=== PATIENT | female | born 1960 | race Caucasian/White ===

== ENCOUNTER 2023-01-06 10:47 | Outpatient (OUT) | payer OTHER, SELFPAY ==
--- NOTE | 2023-01-06 10:50 | MM_ITS ---
Patient Name: NIKOS GARCIA MR#: [id number] : 1960 Exam Date: 01/06/2023 Ordering Doctor: DR Edward Feldman . RADIOLOGY REPORT PROCEDURE: MM TOMOSYNTHESIS SCREENING BI COMPARISON: MG MAMM SCREEN 3D NICHOLAS CAD, 11/23/2021. MG MAMM SCREEN 3D NICHOLAS CAD, 10/20/2020. MG MAMM SCREEN NICHOLAS W CAD, 10/19/2019. MG MAMM NICHOLAS SCRN W CAD DIG, 02/03/2015. INDICATIONS: Screening Calculator Name NCI Breast Cancer Risk Assessment Tool 5 Year Breast Cancer Risk 1.40% Lifetime Breast Cancer Risk 5.80% Personal Breast Cancer No Personal Ovarian Cancer No Treatments None Family Cancers None LOCATION: The [facility] BREAST COMPOSITION: Heterogeneously dense,which may obscure small masses. FINDINGS: DIAGNOSTIC CATEGORY 0--INCOMPLETE: NEED ADDITIONAL IMAGING EVALUATION. RIGHT BREAST: No significant suspicious finding. Scattered benign-appearing lymph nodes are present. Scattered benign-appearing calcifications are present. No significant change has occurred. LEFT BREAST: 6 mm partially circumscribed mass within the posterior lower-inner quadrant just deep to the skin surface. Spot magnification views and ultrasound evaluation recommended. Stable, chronic benign-appearing calcifications. RECOMMENDATIONS: ADDITIONAL MAMMOGRAPHIC VIEWS REQUIRED: LEFT BREAST - LEFT CRANIOCAUDAL SPOT MAGNIFICATION VIEW - LEFT OBLIQUE SPOT MAGNIFICATION VIEW - ULTRASOUND: LEFT BREAST PLEASE NOTE: A NORMAL MAMMOGRAM DOES NOT EXCLUDE THE POSSIBILITY OF BREAST CANCER. A CLINICALLY SUSPICIOUS PALPABLE LUMP SHOULD BE BIOPSIED. Dictated by: Daryn Barahona M.D. on 01/07/2023 at 15:30 Approved by: Daryn Barahona M.D. on 01/07/2023 at 15:58
== END 2023-01-06 10:48 | disposition home or self-care (01) ==
LOC: MAMMO 10:47
PROVIDERS: PCP Family Medicine; Visit Provider Family Medicine
DX: Z12.31 Encounter for screening mammogram for malignant neoplasm of breast (principal); N63.24 Unspecified lump in the left breast, lower inner quadrant
CPT/HCPCS: 77063; 77067

== ENCOUNTER 2023-01-24 09:15 | Outpatient (OUT) | payer OTHER, SELFPAY ==
--- NOTE | 2023-01-24 09:19 | US_ITS ---
Patient Name: NIKOS GARCIA MR#: [id number] : 1960 Exam Date: 01/24/2023 Ordering Doctor: DR Edward Feldman . RADIOLOGY REPORT PROCEDURE: MM DIAGNOSTIC MAMMO UNILAT LT, 01/24/2023, 09:19 US BREAST LT LIMITED, 01/24/2023, 09:32 COMPARISON: MM TOMOSYNTHESIS SCREENING BI, 01/06/2023. MG MAMM SCREEN 3D NICHOLAS CAD, 11/23/2021. MG MAMM SCREEN 3D NICHOLAS CAD, 10/20/2020. MG MAMM SCREEN NICHOLAS W CAD, 10/19/2019. INDICATIONS: Abnormal Mammogram R92.8 Calculator Name NCI Breast Cancer Risk Assessment Tool 5 Year Breast Cancer Risk 1.40% Lifetime Breast Cancer Risk 5.80% Personal Breast Cancer No Personal Ovarian Cancer No Treatments None Family Cancers None LOCATION: [facility] BREAST COMPOSITION: Heterogeneously dense,which may obscure small masses. FINDINGS: DIAGNOSTIC CATEGORY 2--BENIGN FINDING: LEFT BREAST: Spot magnification views demonstrate persistence of a circumscribed mass within the posterior lower inner quadrant. Ultrasound evaluation demonstrates a 5 x 5 x 3 mm hypoechoic circumscribed mass with central fatty hilum at the 8 o'clock position 6.9 cm from the nipple; findings favor a benign lymph node. RECOMMENDATIONS: ROUTINE MAMMOGRAM AND CLINICAL EVALUATION IN 12 MONTHS. PLEASE NOTE: A NORMAL MAMMOGRAM DOES NOT EXCLUDE THE POSSIBILITY OF BREAST CANCER. A CLINICALLY SUSPICIOUS PALPABLE LUMP SHOULD BE BIOPSIED. Dictated by: Daryn Barahona M.D. on 01/24/2023 at 15:37 Approved by: Daryn Barahona M.D. on 01/24/2023 at 15:45
--- NOTE | 2023-01-24 09:40 | MM_ITS ---
Patient Name: NIKOS GARCIA MR#: [id number] : 1960 Exam Date: 01/24/2023 Ordering Doctor: DR Edward Feldman . RADIOLOGY REPORT PROCEDURE: MM DIAGNOSTIC MAMMO UNILAT LT, 01/24/2023, 09:19 US BREAST LT LIMITED, 01/24/2023, 09:32 COMPARISON: MM TOMOSYNTHESIS SCREENING BI, 01/06/2023. MG MAMM SCREEN 3D NICHOLAS CAD, 11/23/2021. MG MAMM SCREEN 3D NICHOLAS CAD, 10/20/2020. MG MAMM SCREEN NICHOLAS W CAD, 10/19/2019. INDICATIONS: Abnormal Mammogram R92.8 Calculator Name NCI Breast Cancer Risk Assessment Tool 5 Year Breast Cancer Risk 1.40% Lifetime Breast Cancer Risk 5.80% Personal Breast Cancer No Personal Ovarian Cancer No Treatments None Family Cancers None LOCATION: [facility] BREAST COMPOSITION: Heterogeneously dense,which may obscure small masses. FINDINGS: DIAGNOSTIC CATEGORY 2--BENIGN FINDING: LEFT BREAST: Spot magnification views demonstrate persistence of a circumscribed mass within the posterior lower inner quadrant. Ultrasound evaluation demonstrates a 5 x 5 x 3 mm hypoechoic circumscribed mass with central fatty hilum at the 8 o'clock position 6.9 cm from the nipple; findings favor a benign lymph node. RECOMMENDATIONS: ROUTINE MAMMOGRAM AND CLINICAL EVALUATION IN 12 MONTHS. PLEASE NOTE: A NORMAL MAMMOGRAM DOES NOT EXCLUDE THE POSSIBILITY OF BREAST CANCER. A CLINICALLY SUSPICIOUS PALPABLE LUMP SHOULD BE BIOPSIED. Dictated by: Daryn Barahona M.D. on 01/24/2023 at 15:37 Approved by: Daryn Barahona M.D. on 01/24/2023 at 15:45
== END 2023-01-24 09:16 | disposition home or self-care (01) ==
LOC: MAMMO 09:15
PROVIDERS: PCP Family Medicine; Visit Provider Family Medicine
DX: R92.8 Other abnormal and inconclusive findings on diagnostic imaging of breast (principal); N63.24 Unspecified lump in the left breast, lower inner quadrant
CPT/HCPCS: 76642; 77065

== ENCOUNTER 2024-01-09 07:31 | Outpatient (OUT) | payer MEDICARE, SELFPAY ==
--- OUTSIDE RECORDS SUMMARY | 2024-01-09 07:37 | XMS_ITS | CCD ---
Author Organization [facility] Inform ion [facility] Care Team Providers Care Seed Trucker Name Role Phone DR CHACE OLEARY Admitting Unavailable NADMILLIE, DR CHACE Alvarez Attending Unavailable NADERER, DR CHACE Alvarez Primary Care Unavailable LEONARD, DR ISIDRA Daly Consulting Unavailable NADERER, DR CHACE Alvarez Consulting Unavailable NADERER, DR CHACE Alvarez Admitting Unavailable NADERER, DR CHACE Alvarez Attending Unavailable ANIRUDH, DR CHACE Alvarez Primary Care Unavailable ANIRUDH, DR CHACE Alvarez Consulting Unavailable HOLDEN Perea Attending Provider Rashmi Perea Unavailable Rashmi Perea Admitting Unavailable Rashmi Perea Attending Unavailable NO FAMILY, PHYSICIAN Primary Care Unavailable Mily Martinez Unavailable ANG MICHAEL Attending Unavailable CHACE OLEARY Referring Unavailable CHACE OLEARY Primary Care Unavailable Allergies Allergy Classification Reported Allergen(s) Allergy Type Date of Onset Reaction(s) Facility (2 sources) Penicillins; Translations: [PENICILLINS] Drug allergy (disorder) 09-07-19 13 [facility] Repository (1 source) Sulfonamides (Antibiotic) Drug allergy (disorder) 09-07-19 13 [facility] (5 sources) Penicillin G Drug Allergy pt doens't remember [facility] Other (5 sources) Sulf-10 Drug allergy pt doesn't remember [facility] Other (1 source) Sulfonamides (Antibiotic); Translations: [SULFA (SULFONAMIDE ANTIBIOTICS)] Propensity to adverse reactions to drug (disorder) 07-10-19 17 [facility] Repository Medications Current Medications Medication Drug Class(es) Dates Sig (Normalized) Sig (Original) Allergy (5 sources) Allergy Active celecoxib 200 mg oral capsule (5 sources) Nonsteroidal Anti-inflammatory Drug take 1 capsule by mouth twice daily at mealtime CeleBREX 200 MG 1 capsule with food Orally twice a day Active CeleBREX Active cephalexin 500 mg oral capsule (1 source) Cephalosporin Antibacterial Start: 10-22-2022 take 1 capsule by mouth every eight hours Cephalexin 500 MG 1 capsule Orally tid for 10 day(s) Sep, Active doxycycline monohydrate 100 mg oral capsule (3 sources) Tetracycline-class Drug Start: 04-11-2022 take 1 capsule by mouth every twelve hours Doxycycline Monohydrate 100 MG 1 capsule Orally every 12 hrs for 7 days Mar, Active fluticasone propionate 0.05 mg/actuat metered dose nasal spray (1 source) Corticosteroid Start: 10-22-2022 take 2 spray(s) nasal route once daily Fluticasone Propionate 50 MCG/ACT 2 sprays Nasally Once a day for 14 day(s) Sep, Active Multivitamin preparation (5 sources) take 1 tablet by mouth once daily Multivitamin - 1 tablet Orally Once a day Active Multivitamin Act antelmo phenazopyridine hydrochloride 200 mg oral tablet (3 sources) Start: 04-11-2022 take 1 tablet by mouth every eight hours Pyridium 200 MG 1 tablet after meals Orally Three times a day for 2 day(s) Mar, Active predniSONE 20 mg oral tablet (1 source) Start: 10-22-2022 take 1 tablet by mouth every twelve hours predniSONE 20 MG 1 tablet Orally bid for 5 day(s) Sep, Active Completed/Discontinued Medications Medication Drug Class(es) Dates Sig (Normalized) Sig (Original) clarithromycin 500 mg oral tablet (3 sources) Macrolide Antimicrobial Start: 3 take 1 tablet by mouth every twelve hours Clarithromycin 500 MG 1 tablet Orally every 12 hrs for 7 days Feb, Not-Taking dextromethorphan hydrobromide 1.5 mg/ml / pyrilamine maleate 1.5 mg/ml oral solution (3 sources) Uncompetitive N-hyknkl-K-asparta te Receptor Antagonist, Sigma-1 Agonist Start: 3 [place] DM 7.5-7.5 MG/5ML 10 ml Orally every 6-8 hours as needed for 8 days Feb, Not-Taking hydrocortisone 10 mg/ml / neomycin 3.5 mg/ml / polymyxin b [id number] unt/ml otic suspension (2 sources) Aminoglycoside Antibacterial, Polymyxin-class Antibacterial, Corticosteroid Start: 3 Srtmouec-Iynuzxzvs-LI [id number] 3 drops right ear Three times a day for 7 days June, Not-Taking methylPREDNISolone 4 mg oral tablet (8 sources) Corticosteroid Start: 3 methylPREDNISolone 4 MG as directed Orally Once a day for 6 days Feb, Not-Taking Start: 08-10-2013 Depo-Medrol 80 mg Jul, 80 mg Problems Problem Classification Problem Date Documented Da te Episodic/Chronic Administrative/social admission (1 source) Other specified counseling; Translations: [Other specified counseling] Onset: 03-11-2023 Episodic Cancer of other female genital organs (1 source) Carcinoma in situ of vulva; Translations: [Carcinoma in situ of vulva] Onset: 07-09-2016 Chronic Chronic obstructive pulmonary disease and bronchiectasis (1 source) Bronchitis, not specified as acute or chronic Episodic Genitourinary symptoms and ill-defined conditions (2 sources) Dysuria; Translations: [Dysuria] Onset: 04-11-2022 Episodic Other ear and sense organ disorders (1 source) Impacted cerumen, bilateral Episodic Other ear and sense organ disorders (1 source) Unspecified acute noninfective otitis externa, left ear Episodic Other screening for suspected conditions (not mental disorders or infectious disease) (5 sources) Encounter for screening mammogram for malignant neoplasm of breast; Translations: [ENC SCR MAMMO MALIG NEOPLASM BREAST] Onset: 11-23-2021 Episodic Other upper respiratory infections (2 sources) Acute pharyngitis, unspecified; Translations: [Acute sinusitis, unspecified] Episodic Pneumonia (except that caused by tuberculosis or sexually transmitted disease) (1 source) Pneumonia, unspecified organism Episodic Urinary tract infections (1 source) Acute cystitis with hematuria Episodic Results Test Name Value Interpretation Reference Range Facility Urinalysis - AUTOMATEDon Appearance (U) clear [facility] Other Bilirubin Ql (U) Negative [employer] Other Color (U) yellow [facility] Other Glucose Ql (U) Negative [facility] Other Hemoglobin Ql (U) small [employer] Other Ketones Ql (U) Negative [facility] Other Leukocyte esterase Test strip Ql (U) trace [facility] Other Nitrite Ql (U) Negative [facility] Other pH (U) 7.5 [pH] [facility] Other Protein Ql (U) Negative [facility] Other Specific gravity (U) [Rel density] 1.025 [facility] Other Urinalysis Gross Exam abnormal [facility] Other Urobilinogen (U) [Mass/Vol] 0.2 mg/dL [facility] Other Urinalysis - DIPSTICKon 03-27 Appearance (U) [facility] Other Bilirubin Ql (U) [employer] Other Color (U) [facility] Other Glucose Ql (U) [facility] Other Ketones Ql (U) [employer] Other Protein Ql (U) [employer] Other Specific gravity (U) [Rel density] [facility] Other Urinalysis - DIPSTICK [facility] Other Urine Cultureon 04-11-2022 Bacteria identified Cx Nom (U) Reason for Exam Dysuria Urine No Growth 2 Days PERFORMED BY: [address] [id number] [place] [id number] PATHOLOGIST TRUCK UNLOADER YARY SOLER M.D. Normal [facility] Comment on above: Performed By: #### C UU #### [facility] [address] [id number] [facility] Bacteria identified Cx Nom (U) [employer] [facility] Scan•Jour Other Quick Strepon 03-24-2022 S. pyogenes Org specific cx Ql (Throat) Negative [employer] [facility] Scan•Jour Other Quick Strep [employer] [facility] Scan•Jour Other CBC AUTO DIFFon 12-12-2021 BASO # 0.1 103/ul Normal 0.0-0.1 [facility] Comment on above: Performed By: #### C BC #### [facility] [address] [place] [address] Dr. Oliva Sullivan Basophils/100 WBC (Bld) 1.0 % Normal 0.2-2.0 [facility] Comment on above: Performed By: #### C BC #### [facility] [address] [place] [address] Dr. Oliva Sullivan EO # 0.1 103/ul Normal 0.0-0.7 [facility] Comment on above: Performed By: #### C BC #### [facility] [address] [place] [address] Dr. Oliva Sullivan Eosinophils/100 WBC (Bld) 1.6 % Normal 0.9-7.0 [facility] Comment on above: Performed By: #### C BC #### [facility] [address] [address] [address] Oliva Sullivan Erythrocyte distribution width (RBC) [Ratio] 12.6 % Normal 11.0-15.0 [facility] Comment on above: Performed By: #### C BC #### [facility] [address] [address] [address] Oliva Sullivan Hematocrit (Bld) [Volume fraction] 44.6 % Normal 36.0-48.0 [facility] Comment on above: Performed By: #### C BC #### [facility] [address] [place] [address] Dr. Oliva Sullivan Hemoglobin (Bld) [Mass/Vol] 14.6 g/dL Normal 12.0-16.0 [facility] Comment on above: Performed By: #### C BC #### [facility] [address] [place] [address] Dr. Oliva Sullivan IG # 0.01 10e3/ul Normal 0.00-0.03 [facility] Comment on above: Performed By: #### C BC #### [facility] [address] [place] [address] Dr. Oliva Sullivan IG % 0.2 % Normal 0.0-0.5 [facility] Comment on above: Performed By: #### C BC #### [facility] [address] [place] [address] Dr. Oliva Sullivan LYMPH # 2.3 103/ul Normal 1.2-3.8 [facility] Comment on above: Performed By: #### C BC #### [facility] [address] [place] [address] Dr. Oliva Sullivan Lymphocytes/100 WBC (Bld) 37.3 % Normal 20.5-60.0 [facility] Comment on above: Performed By: #### C BC #### [facility] [address] [place] [address] Dr. Oliva Sullivan MANUAL DIFF REQ NO Normal [facility] Comment on above: Performed By: #### C BC #### [facility] [address] [place] [address] Dr. Oliva Sullivan MCH (RBC) [Entitic mass] 31.5 pg Normal 26.7-34.0 [facility] Comment on above: Performed By: #### C BC #### [facility] [address] [place] [address] Dr. Oliva Sullivan MCHC (RBC) [Mass/Vol] 32.7 g/dL Normal 29.9-35.2 [facility] Comment on above: Performed By: #### C BC #### [facility] [address] [place] [address] Dr. Oliva Sullivan MCV (RBC) [Entitic vol] 96.1 fL Normal 81.0-99.0 [facility] Comment on above: Performed By: #### C BC #### [facility] [address] [place] [address] Dr. Oliva Sullivan MONO # 0.6 103/ul Normal 0.3-0.8 [facility] Comment on above: Performed By: #### C BC #### [facility] [address] [place] [address] Dr. Oliva Sullivan Monocytes/100 WBC (Bld) 9.7 % Normal 1.7-12.0 [facility] Comment on above: Performed By: #### C BC #### [facility] [address] [place] [address] Dr. Oliva Sullivan NEUT # 3.1 103/ul Normal 1.4-6.5 [facility] Comment on above: Performed By: #### C BC #### [facility] [address] [place] [address] Dr. Oliva Sullivan Neutrophils/100 WBC (Bld) 50.2 % Normal 43.0-75.0 [facility] Comment on above: Performed By: #### C BC #### [facility] [address] [place] [address] Dr. Oliva Sullivna Platelet mean volume (Bld) [Entitic vol] 10.1 fL Normal 9.5-13.5 [facility] Comment on above: Performed By: #### C BC #### [facility] [address] [place] [address] Dr. Oliva Sullivan PLT 328 103/ul Normal 150-450 [facility] Comment on above: Performed By: #### C BC #### [facility] [address] [place] [address] Dr. Oliva Sullivan RBC 4.64 106/ul Normal 4.20-5.40 [facility] Comment on above: Performed By: #### C BC #### [facility] [address] [place] [address] Dr. Oliva Sullivan WBC 6.2 103/ul Normal 4.0-11.0 [facility] Comment on above: Performed By: #### C BC #### [facility] [address] [address] [address] Oliva Sullivan GLYCOHEMOGLOBIN A1Con 2021 ADA RECOMMENDATION SEE BELOW Normal [facility] Comment on above: Result Comment: ADA RECOMMENDED LIMIT 4.0 - 6.0 ADA THERAPEUTIC TARGET < 7.0 ACTION SUGGESTED > 7.0 Performed By: #### A 1C #### [facility] [address] [address] [address] Oliva Sullivan Glucose [Mass/Vol] 120 mg/dL Normal [facility] Comment on above: Performed By: #### A 1C #### [facility] [address] [address] [address] Oliva Sullivan HbA1c (Bld) [Mass fraction] 5.8 % Normal 4.5-6.2 [facility] Comment on above: Performed By: #### A 1C #### [facility] [address] [address] [address] Oliva Sullivan LIPID PROFILEon 12-12-2021 CHOL-HDL RATIO NORM SEE BELOW Normal [facility] Comment on above: Result Comment: 3.3 - 4.4 LOW RISK 4.4 - 7.1 AVERAGE RISK 7.1 - 11.0 MODERATE RISK >11.0 HIGH RISK Performed By: #### T SH, LIPID, LIVER, BMP #### [facility] [address] [address] [address] Oliva Sullivan Cholesterol [Mass/Vol] 202 mg/dL Critically high <=200 [facility] Comment on above: Performed By: #### T SH, LIPID, LIVER, BMP #### [facility] [address] [address] [address] Oliva Sullivan Cholesterol in HDL [Mass/Vol] 57 mg/dL Normal 40-60 [facility] Comment on above: Performed By: #### T SH, LIPID, LIVER, BMP #### [facility] [address] [address] [address] Oliva Sullivan Cholesterol in LDL [Mass/Vol] 127.2 mg/dL Normal [facility] Comment on above: Performed By: #### T SH, LIPID, LIVER, BMP #### [facility] [address] [address] [address] Oliva Sullivan Cholesterol.total/Ch olesterol in HDL [Mass ratio] 3.5 {ratio} Normal [facility] Comment on above: Performed By: #### T SH, LIPID, LIVER, BMP #### [facility] [address] [address] [address] Oliva Sullivan HDL NORMAL > or = 60 mg/dl - LOW CARDIOVASCULAR RISK <40 mg/dl - HIGH CARDIOVASCULAR RISK Normal [facility] Comment on above: Performed By: #### T SH, LIPID, LIVER, BMP #### [facility] [address] [address] [address] Oliva Sullivan LDL CALC NORMAL SEE BELOW Normal [facility] Comment on above: Result Comment: <100 mg/dl OPTIMAL 100 - 129 mg/dl NEAR OR ABOVE OPTIMAL 130 - 159 mg/dl BORDERLINE HIGH 160 - 189 mg/dl HIGH >190 mg/dl VERY HIGH Performed By: #### T SH, LIPID, LIVER, BMP #### [facility] [address] [address] [address] Oliva Sullivan Triglyceride [Mass/Vol] 89 mg/dL Normal <=150 [facility] Comment on above: Performed By: #### T SH, LIPID, LIVER, BMP #### [facility] [address] [address] [address] Oliva Sullivan VLDL CALC 17.8 mg/dL Normal [facility] Comment on above: Performed By: #### T SH, LIPID, LIVER, BMP #### [facility] [address] [address] [address] Oliva Sullivan LIVER PROFILEon 12-12-2021 Albumin [Mass/Vol] 4.2 g/dL Normal 3.4-5.0 [facility] Comment on above: Performed By: #### T SH, LIPID, LIVER, BMP #### [facility] [address] [address] [address] Oliva Sullivan Albumin/Globulin [Mass ratio] 1.1 {ratio} Normal [facility] Comment on above: Performed By: #### T SH, LIPID, LIVER, BMP #### [facility] [address] [address] [address] Oliva Sullivan ALP [Catalytic activity/Vol] 97 U/L Normal 46-116 [facility] Comment on above: Performed By: #### T SH, LIPID, LIVER, BMP #### [facility] [address] [place] [address] Dr. Oliva Sullivan ALT [Catalytic activity/Vol] 42 U/L Normal 14-59 [facility] Comment on above: Performed By: #### T SH, LIPID, LIVER, BMP #### [facility] [address] [place] [address] Dr. Oliva Sullivan AST [Catalytic activity/Vol] 27 U/L Normal 15-37 [facility] Comment on above: Performed By: #### T SH, LIPID, LIVER, BMP #### [facility] [address] [place] [address] Dr. Oliva Sullivan BILI, CONJUGATED 0.1 mg/dL Normal 0.0-0.2 [facility] Comment on above: Performed By: #### T SH, LIPID, LIVER, BMP #### [facility] [address] [place] [address] Dr. Oliva Sullivan Bilirubin [Mass/Vol] 0.4 mg/dL Normal 0.2-1.0 [facility] Comment on above: Performed By: #### T SH, LIPID, LIVER, BMP #### [facility] [address] [place] [address] Dr. Oliva Sullivan Globulin (S) [Mass/Vol] 3.7 g/dL Normal [facility] Comment on above: Performed By: #### T SH, LIPID, LIVER, BMP #### [facility] [address] [place] [address] Dr. Oliva Sullivan Protein [Mass/Vol] 7.9 g/dL Normal 6.4-8.2 [facility] Comment on above: Performed By: #### T SH, LIPID, LIVER, BMP #### [facility] [address] [address] [address] Oliva Sullivan PROF CHEM 8 (BAS METB)on Anion gap [Moles/Vol] 11.5 mmol/L Normal [facility] Comment on above: Performed By: #### T SH, LIPID, LIVER, BMP #### [facility] [address] [place] [address] Dr. Oliva Sullivan Calcium [Mass/Vol] 9.4 mg/dL Normal 8.5-10.1 [facility] Comment on above: Performed By: #### T SH, LIPID, LIVER, BMP #### [facility] [address] [address] [address] Oliva Sullivan Chloride [Moles/Vol] 99 mmol/L Normal 98-107 [facility] Comment on above: Performed By: #### T SH, LIPID, LIVER, BMP #### [facility] [address] [place] [address] Dr. Oliva Sullivan CO2 [Moles/Vol] 28.3 mmol/L Normal 21.0-32.[address] [facility] Comment on above: Performed By: #### T SH, LIPID, LIVER, BMP #### [facility] [address] [address] [address] Oliva Sullivan Creatinine [Mass/Vol] 0.78 mg/dL Normal 0.55-1.02 [facility] Comment on above: Performed By: #### T SH, LIPID, LIVER, BMP #### [facility] [address] [place] [address] Dr. Oliva Sullivan EGFR-AF MONEGASQUE >60 Normal >=[address] [facility] Comment on above: Performed By: #### T SH, LIPID, LIVER, BMP #### [facility] [address] [address] [address] Oliva Sullivan EGFR-NON AF MONEGASQUE >60 Normal >=60 [facility] Comment on above: Performed By: #### T SH, LIPID, LIVER, BMP #### [facility] [address] [place] [address] Dr. Oliva Sullivan Glucose [Mass/Vol] 86 mg/dL Normal 74-106 [facility] Comment on above: Performed By: #### T SH, LIPID, LIVER, BMP #### [facility] [address] [address] [address] Oliva Sullivan Potassium [Moles/Vol] 4.8 mmol/L Normal 3.5-5.1 [facility] Comment on above: Performed By: #### T SH, LIPID, LIVER, BMP #### [facility] [address] [address] [address] Oliva Sullivan Sodium [Moles/Vol] 134 mmol/L Critically low 136-145 [facility] Comment on above: Performed By: #### T SH, LIPID, LIVER, BMP #### [facility] [address] [place] [address] Dr. Oliva Sullivan Urea nitrogen [Mass/Vol] 12.0 mg/dL Normal 7.0-18.0 [facility] Comment on above: Performed By: #### T SH, LIPID, LIVER, BMP #### [facility] [address] [place] [address] Dr. Oliva Sullivan Urea nitrogen/Creatinine [Mass ratio] 15.4 mg/mg Normal [facility] Comment on above: Performed By: #### T SH, LIPID, LIVER, BMP #### [facility] [address] [place] [address] Dr. Oliva Sullivan TSHon 12-12-2021 TSH 2.314 uIU/mL Normal 0.358-3.740 [facility] Comment on above: Performed By: #### T SH, LIPID, LIVER, BMP #### [facility] [address] [place] [address] Dr. Oliva Sullivan MG MAMM SCREEN 3D NICHOLAS CADon 11-23-2021 MG MAMM SCREEN 3D NICHOLAS CAD Patient: NIKOS GARCIA Exam Date: 11/23/2021 : 1960 Gender:F Ordering : DR CHACE OLEARY . Admission #: [id number] Family : ANG MICHAEL Order #: [id number] CLICK HERE TO VIEW EXAM RADIOLOGY REPORT PROCEDURE: MAMMOGRAM SCREENING 3D BILATERAL CAD COMPARISON: MG MAMM SCREEN NICHOLAS W CAD, 10/19/2019. MG MAMM SCREEN 3D NICHOLAS CAD, 10/20/2020. INDICATIONS: Screening mammography Calculator Name NCI Breast Cancer Risk Assessment Tool 5 Year Breast Cancer Risk 1.40% Lifetime Breast Cancer Risk 6.00% Personal Breast Cancer No Personal Ovarian Cancer No Treatments None Family Cancers None LOCATION: [facility] BREAST COMPOSITION: Heterogeneously dense,which may obscure small masses. FINDINGS: DIAGNOSTIC CATEGORY 1--NEGATIVE. NO CHANGE FROM COMPARISON ASSESSMENT. Scattered benign-appearing calcifications are present. RIGHT BREAST: No significant suspicious finding. LEFT BREAST: No significant suspicious finding. RECOMMENDATIONS: ROUTINE MAMMOGRAM AND CLINICAL EVALUATION IN 12 MONTHS. PLEASE NOTE: A NORMAL MAMMOGRAM DOES NOT EXCLUDE THE POSSIBILITY OF BREAST CANCER. A CLINICALLY SUSPICIOUS PALPABLE LUMP SHOULD BE BIOPSIED. Dictated by: Isidra Culp MD on 11/23/2021 at 12:52 Approved by: Isidra Culp MD on 11/23/2021 at 12:54 Normal [facility] Vital Signs Date Time Vital Sign Value Performing Clinician Facility 10-22-2022 09:20-0400 Body height 147.32 cm Mily Valenzuelamond Other [facility] Other 10-22-2022 09:20-0400 Body mass index (BMI) [Ratio] 22.69 kg/m2 Mily Michelle Other [facility] Other 10-22-2022 09:20-0400 Body temperature 97.4 [degF] Mily Michelle Other [facility] Other 10-22-2022 09:20-0400 Body weight 49.26 kg Mily Valenzuelamond Other [facility] Other 10-22-2022 09:20-0400 Diastolic blood pressure 85 mm[Hg] Mily Michelle Other [facility] Other 10-22-2022 09:20-0400 Respiratory rate 18 /min Mily Michelle Other [facility] Other 10-22-2022 09:20-0400 SaO2% (BldA) [Mass fraction] 99 % Mily Michelle Other [facility] Other 10-22-2022 09:20-0400 Systolic blood pressure 141 mm[Hg] Mily Michelle Other [facility] Other 07-07-2022 11:50-0400 Body height 147.32 cm Mily Michelle Other [facility] Other 07-07-2022 11:50-0400 Body mass index (BMI) [Ratio] 22.95 kg/m2 Mily Michelle Other [facility] Other 07-07-2022 11:50-0400 Body temperature 97.1 [degF] Mily Michelle Other [facility] Other 07-07-2022 11:50-0400 Body weight 49.81 kg Mily Michelle Other [facility] Other 07-07-2022 11:50-0400 Diastolic blood pressure 80 mm[Hg] Mily Michelle Other [facility] Other 07-07-2022 11:50-0400 Respiratory rate 18 /min Mily Michelle Other [facility] Other 07-07-2022 11:50-0400 SaO2% (BldA) [Mass fraction] 98 % Mily Michelle Other [facility] Other 07-07-2022 11:50-0400 Systolic blood pressure 135 mm[Hg] Mily Michelle Other [facility] Other 04-11-2022 13:00-0500 Body height 147.32 cm Rashmi Madrigalault Other [facility] Other 04-11-2022 13:00-0500 Body mass index (BMI) [Ratio] 22.53 kg/m2 Rashmi Brit Other [facility] Other 04-11-2022 13:00-0500 Body temperature 98 [degF] Rashmi Brit Other [facility] Other 04-11-2022 13:00-0500 Body weight 48.9 kg Rashmi Brit Other [facility] Other 04-11-2022 13:00-0500 Diastolic blood pressure 83 mm[Hg] Rashmi Madrigalault Other [facility] Other 04-11-2022 13:00-0500 SaO2% (BldA) [Mass fraction] 98 % Rashmi Madrigalault Other [facility] Other 04-11-2022 13:00-0500 Systolic blood pressure 128 mm[Hg] Rashmi Madrigalault Other [facility] Other 03-24-2022 11:30-0500 Body height 147.32 cm Rashmi Brit Other [facility] Other 03-24-2022 11:30-0500 Body mass index (BMI) [Ratio] 24.03 kg/m2 Rashmi Brit Other [facility] Other 03-24-2022 11:30-0500 Body temperature 97.9 [degF] Rashmi Perea Other [facility] Other 03-24-2022 11:30-0500 Body weight 52.16 kg Rashmi Perea Other [facility] Other 03-24-2022 11:30-0500 Diastolic blood pressure 83 mm[Hg] Rashmi Peera Other [facility] Other 03-24-2022 11:30-0500 Respiratory rate 18 /min Rashmi Perea Other [facility] Other 03-24-2022 11:30-0500 SaO2% (BldA) [Mass fraction] 92 % Rashmi Perea Other [facility] Other 03-24-2022 11:30-0500 Systolic blood pressure 130 mm[Hg] Rashmi Perea Other [facility] Other 03-05-2022 13:30-0500 Body height 147.32 cm Rashmi Perea Other [facility] Other 03-05-2022 13:30-0500 Body mass index (BMI) [Ratio] 24.03 kg/m2 Rashmi Perea Other [facility] Other 03-05-2022 13:30-0500 Body temperature 98.1 [degF] Rashmi Madrigalault Other [facility] Other 03-05-2022 13:30-0500 Body weight 52.16 kg Rashmi Madrigalault Other [facility] Other 03-05-2022 13:30-0500 Respiratory rate 18 /min Rashmi Madrigalault Other [facility] Other 03-05-2022 13:30-0500 SaO2% (BldA) [Mass fraction] 98 % Rashmi Madrigalault Other [facility] Other Encounters Encounter Date Encounter Type Care Provider Facility Start: 03-11-2023 End: 03-11-2023 ambulatory [facility] Start: 10-22-2022 End: 10-22-2022 ambulatory Mily Michelle Other [facility] Other Start: 10-22-2022 Office outpatient vi sit 15 minutes Mily Michelle [facility] Start: 07-07-2022 End: 07-07-2022 ambulatory Mily Michelle Other [facility] Other Start: 07-07-2022 Office outpatient vi sit 15 minutes Mily Michelle [facility] Start: 04-11-2022 Office outpatient vi sit 15 minutes Rashmi Brit [facility] Start: 04-11-2022 End: 04-11-2022 ambulatory Rashmi Perea [facility] Work Phone: Start: 04-11-2022 End: 04-11-2022 Departed Referred [facility] Rashmi Perea Work Phone: [facility] [place] Work Phone: Start: 03-24-2022 End: 03-24-2022 ambulatory Rashmi Perea Other [facility] Other Start: 03-24-2022 Office outpatient vi sit 15 minutes Rashmilloyd Perea [facility] Start: 03-05-2022 End: 03-05-2022 ambulatory Rashmi Perea Other [facility] Other Start: 03-05-2022 Office outpatient ne w 20 minutes Rashmi Madrigalault [facility] Start: 12-16-2021 Encounter for genera l adult medical examination without abnormal findings DR CHACE OLEARY [facility] Start: 12-12-2021 End: 12-13-[address] CHACE OLEARY Facility:[facility] Start: 12-12-2021 End: 12-13-2021 Encounter for general adult medical examination without abnormal findings DR CHACE OLEARY Facility:[facility] Start: 11-23-2021 End: 11-24-[address] CHACE OLEARY Facility:[facility] Procedures Date Procedure Procedure Detail Performing Clinician Start: 03-11-2023 Follow-up visit Follow-up CHANDRAKANT MICHAEL Plan of Treatment Date Care Activity Detail Author Start: 04-11-2022 Bacteria identified in Urine by Culture [facility] Payers Date Payer Category Payer Unknown [id number] 2022 Self-pay 2022 Unknown [id number] 2022 Unknown [id number] 1961 Unknown [id number] 1960 Unknown [id number] 1960 Unknown [id number] 1960 Unknown [id number] Medicaid [id number] Private Health Insurance [facility] [id number] Unknown [id number] Social History Date Type Detail Facility Tobacco smoking status NHIS Unknown if ever smoked [facility] Work Phone: Start: 1960 Sex Assigned At Female F [facility] Sex Assigned At Sex Assigned At Bir th [facility] Other Evaluation note 10-22-2022 Note Date & Type Note Facility 10-22-2022 Evaluation note Encounter Date Diagnosis Assessment Notes Sep, Acute sinusitis, recurrence not specified, unspecified location (ICD-10 - J01.90) Sinusitis home care material was printed Drink plenty fluids, get plenty of rest. Take the cephalexin and prednisone as prescribed until gone. Use the fluticasone nasal spray as prescribed and your symptoms improved. You may continue to take your daily antihistamine medication. Follow-up with your family physician if no improvement in 2 to 3 days [facility] Other Evaluation note 07-07-2022 Note Date & Type Note Facility 07-07-2022 Evaluation note Encounter Date Diagnosis Assessment Notes June, Bilateral impacted cerumen (ICD-10 - H61.23) Cerumen impaction home care material was printed Drink plenty fluids, get plenty of rest. Use eardrops as prescribed. Take Tylenol or Motrin as needed for aches pains or fevers. Follow-up with family physician if no improvement in 2 to 3 days June, Acute otitis externa of left ear, unspecified type (ICD-10 - H60.502) Otitis externa home care material was printed [facility] Other Evaluation note 04-11-2022 Note Date & Type Note Facility 04-11-2022 Evaluation note Encounter Date Diagnosis Assessment Notes Mar, Dysuria (ICD-10 - R30.0) Mar, Acute cystitis with hematuria (ICD-10 - N30.01) Take medication as directed. Urine analysis shows abnormalities today in office. Urine culture will be sent to lab. Will call with results if warranted. Increase fluid intake. Follow hygiene guidelines such as wiping front to back, avoid using perfumed lotions, bath beads, bubble bath. Recommend follow up with primary care provider after treatment completed to make sure infection has cleared. [facility] Other Evaluation note 03-24-2022 Note Date & Type Note Facility 03-24-2022 Evaluation note Encounter Date Diagnosis Assessment Notes Feb, Sore throat (ICD-10 - J02.9) Feb, Walking pneumonia (ICD-10 - J18.9) Take medications as directed. Rest and increase fluid intake. Take meds with food to prevent stomach upset. Use inhaler as needed for coughing spells and SOB. It is better to use inhaler a few times a day over the next 2-3 days. Follow up with primary care provider if symptoms do not improve with treatment plan, although it may take a few weeks for the cough to go away [facility] Other Evaluation note 03-05-2022 Note Date & Type Note Facility 03-05-2022 Evaluation note Encounter Date Diagnosis Assessment Notes Feb, Bronchitis (ICD-10 - J40) Take medications as directed. Rest and increase fluid intake. Take meds with food to prevent stomach upset. Use inhaler as needed for coughing spells and SOB. It is better to use inhaler a few times a day over the next 2-3 days. Follow up with primary care provider if symptoms do not improve with treatment plan, although it may take a few weeks for the cough to go away [facility] Other Evaluation note Note Date & Type Note Facility Evaluation note No assessment information availa [facility] Work Phone: History general Narrative - Reported Note Date & Type Note Facility History general Narrative - Reported Type Medical History Osteoarthritis Surgical History cholecystectomy Surgical History tonsillectomy Surgical History wisdom teeth Hospitalization History see above [facility] Scan•Jour Other Summary Purpose Family History No Family History Records FoundNo Family History Records FoundNo Family History Records Found Advance Directives No Advanced Directives Records FoundNo Advanced Directives Records FoundNo Advanced Directives Records Found Chief Complaint and Reason for Visit Chief Complaint Dysuria Additional Source Comments INFORMATION SOURCE (unrecogn ized section and content) DATE CREATED AUTHOR 01/23/2022 Bayron silver DATE CREATED AUTHOR AUTHOR'S MICHOACANO MEDINA 04/23/2022 [facility] DATE CREATED AUTHOR AUTHOR'S ORGANIZ ATION 03/12/2023 [facility] Care Teams (unrecognized sec tion and content) Team Status: Inactive Member Role Status Dates HOLDEN Gray Attending Provider Active Goals (unrecognized section and content) Goals may be documented in a n alternate sectionNo InformationNo InformationNo InformationNo InformationNo Information REASON FOR VISIT (unrecogniz ed section and content) COUGH, CONGESTIONSORE THROAT CONGESTION COUGHUTIRIGHT EARACHE, DECREASED HEARINGsinus infection FOR RECORDS PERTAINING TO PATIENTS WHO ARE OR HAVE BEEN ENROLLED IN A CHEMICAL DEPENDENCY/SUBSTANCEABUSE PROGRAM, SOME INFORMATION MAY BE OMITTED. This clinical summary was aggregated from multiple sources. Caution should be exercised in using it in the provision of clinical care. This summary normalizes information from multiple sources, and as a consequence, information in this document may materially change the coding, format and clinical context of patient data. In addition, data may be omitted in some cases. CLINICAL DECISIONS SHOULD BE BASED ON THE PRIMARY CLINICAL RECORDS. [employer] provides no warranty or guarantee of the accuracy or completeness of information in this document.
--- NOTE | 2024-01-09 07:42 | MM_ITS ---
Patient Name: NIKOS GARCIA MR#: [id number] : 1960 Exam Date: 01/09/2024 Ordering Doctor: Non-Staff Physician RADIOLOGY REPORT PROCEDURE: MM TOMOSYNTHESIS SCREENING BI COMPARISON: US BREAST LT LIMITED, 01/24/2023. MM DIAGNOSTIC MAMMO UNILAT LT, 01/24/2023. MM TOMOSYNTHESIS SCREENING BI, 01/06/2023. MG MAMM SCREEN 3D NICHOLAS CAD, 11/23/2021. MG MAMM SCREEN 3D NICHOLAS CAD, 10/20/2020. INDICATIONS: Screening Calculator Name NCI Breast Cancer Risk Assessment Tool 5 Year Breast Cancer Risk 1.50% Lifetime Breast Cancer Risk 5.60% Personal Breast Cancer No Personal Ovarian Cancer No Treatments None Family Cancers None LOCATION: [facility] BREAST COMPOSITION: The breasts are heterogeneously dense,which may obscure small masses. FINDINGS: DIAGNOSTIC CATEGORY 0--INCOMPLETE: NEED ADDITIONAL IMAGING EVALUATION. RIGHT BREAST: No significant suspicious finding. Scattered benign-appearing calcifications are present. No significant change has occurred. LEFT BREAST: Interval increase in size and density of a 7 mm partially circumscribed mass within the posterior lower inner quadrant, which on previous ultrasound evaluation with suggestive of a lymph node. Given the change in size and density additional ultrasound evaluation is recommended. Stable benign-appearing calcifications. RECOMMENDATIONS: ULTRASOUND: LEFT BREAST Active recommendations from prior exams: ROUTINE MAMMOGRAM AND CLINICAL EVALUATION IN [#MONTHS] MONTHS. Due on 01/25/2024. PLEASE NOTE: A NORMAL MAMMOGRAM DOES NOT EXCLUDE THE POSSIBILITY OF BREAST CANCER. A CLINICALLY SUSPICIOUS PALPABLE LUMP SHOULD BE BIOPSIED. Dictated by: Daryn Barahona M.D. on 01/09/2024 at 10:29 Approved by: Daryn Barahona M.D. on 01/09/2024 at 10:37
== END 2024-01-09 07:32 | disposition home or self-care (01) ==
LOC: MAMMO 07:35
PROVIDERS: PCP Family Medicine
DX: Z12.31 Encounter for screening mammogram for malignant neoplasm of breast (principal); N63.24 Unspecified lump in the left breast, lower inner quadrant
CPT/HCPCS: 77063; 77067

== ENCOUNTER 2024-01-27 08:50 | Outpatient (OUT) | payer MEDICARE, SELFPAY ==
--- NOTE | 2024-01-27 08:53 | US_ITS ---
Patient Name: NIKOS GARCIA MR#: [id number] : 1960 Exam Date: 01/27/2024 Ordering Doctor: Non-Staff Physician RADIOLOGY REPORT PROCEDURE: US BREAST LT COMPLETE COMPARISON: MM TOMOSYNTHESIS SCREENING BI, 01/09/2024. INDICATIONS: Abnormal mammogram on left, R92.8 TECHNIQUE: Breast ultrasound was performed, with evaluation focusing only on specific areas of concern. FINDINGS: DIAGNOSTIC CATEGORY 2--BENIGN FINDING: Identified in the hypodermis is a focal oval area hypoechogenicity, with mildly heterogeneous internal echotexture, this lesion extends nearly to the skin surface on image number 19. No internal vascularity. The lesion measures 6.4 x 5.4 x 6.4 mm, this lesion likely represents an epidermal inclusion cyst or sebaceous cyst. RECOMMENDATIONS: ROUTINE MAMMOGRAM AND CLINICAL EVALUATION IN 12 MONTHS. PLEASE NOTE: A NORMAL ULTRASOUND EXAMINATION DOES NOT EXCLUDE THE POSSIBILITY OF BREAST CANCER. A CLINICALLY SUSPICIOUS PALPABLE LUMP SHOULD BE BIOPSIED. Dictated by: Eduardo Culp MD on 01/27/2024 at 09:20 Approved by: Eduardo Culp MD on 01/27/2024 at 09:23
--- OUTSIDE RECORDS SUMMARY | 2024-01-27 08:57 | XMS_ITS | CCD ---
Author Organization [facility] Care Team Providers Care Supplier Quality Engineering Manager Name Role Phone ANIRUDH, DR EDWARD Alvarez Admitting Unavailable ANIRUDH, DR EDWARD Alvarez Attending Unavailable ANIRUDH, DR EDWARD Alvarez Primary Care Unavailable BANKS, DR ISIDRA Daly Consulting Unavailable KIMMYERER, DR EDWARD Alvarez Consulting Unavailable ANIRUDH, DR EDWARD Alvarez Admitting Unavailable ANIRUDH, DR EDWARD Alvarez Attending Unavailable ANIRUDH, DR EDWARD Alvarez Primary Care Unavailable ANIRUDH, DR EDWARD Alvarez Consulting Unavailable HOLDEN Perea Attending Provider Rashmi Perea Unavailable Rashmi Perea Admitting Unavailable Rashmi Perea Attending Unavailable NO FAMILY, PHYSICIAN Primary Care Unavailable Mily Martinez Unavailable JACKIE MICHAEL Attending Unavailable EDWARD OLEARY Referring Unavailable EDWARD OLEARY Primary Care Unavailable Edward Oleary MD Primary Care Provider Edward Oleary MD Unavailable NESS OGDEN Attending Unavailable Allergies Allergy Classification Reported Allergen(s) Allergy Type Date of Onset Reaction(s) Facility (2 sources) Penicillins; Translations: [PENICILLINS] Drug allergy (disorder) 09-07-19 13 [facility]ository (1 source) Sulfonamides (Antibiotic) Drug allergy (disorder) 09-07-19 13 [facility] (5 sources) Penicillin G Drug Allergy pt doens't remember [facility] Other (5 sources) Sulf-10 Drug allergy pt doesn't remember [facility] Other (2 sources) Sulfonamides (Antibiotic); Translations: [SULFA (SULFONAMIDE ANTIBIOTICS)] Propensity to adverse reactions to drug (disorder) 07-10-19 17 [facility] (1 source) Penicillins Propensity to adverse reactions to drug 07-10-19 17 Hives [facility] (2 sources) Penicillins Drug Intolerance 07-10-19 17 Hives, Unknown [facility] (2 sources) Sulfamethoxazole / Trimethoprim Drug Allergy 01-13-20 Unknown [facility] (2 sources) Sulfonamides (Antibiotic) Drug Intolerance 07-10-19 17 Hives, Unknown [facility] Medications Current Medications Medication Drug Class(es) Dates Sig (Normalized) Sig (Original) acetaminophen 500 mg oral tablet (3 sources) take 1 tablet by mouth every six hours as needed acetaminophen (Tylenol) 500 MG tablet Take 500 mg by mouth every 6 (six) hours if needed Active Allergy (5 sources) Allergy Active celecoxib 200 mg oral capsule (9 sources) Nonsteroidal Anti-inflammatory Drug Start: 09-25-2023 take 1 capsule by mouth in the morning celecoxib (CeleBREX) 200 MG capsule Indications: Arthritis Take 1 capsule (200 mg) by mouth in the morning and 1 capsule (200 mg) before bedtime. 60 capsule 3 09/25/2023 Active CeleBREX Active cephalexin 500 mg oral [...] a day for 14 day(s) Sep, Active Multiple Vitamins-Minerals (multivitamin with minerals) tablet (2 sources) take 1 tablet by mouth once daily Multiple Vitamins-Minerals (multivitamin with minerals) tablet Take 1 tablet by mouth Daily Active multivit-min/debby us fumarate (MULTI VITAMIN ORAL) (1 source) multivit-min/conor ro us fumarate (MULTI VITAMIN ORAL) Take by mouth. Active Multivitamin preparation (5 sources) take 1 [...] 1.5 mg/ml oral solution (3 sources) Uncompetitive K-myybfx-S-asparta te Receptor Antagonist, Sigma-1 Agonist Start: 3 [place] DM 7.5-7.5 MG/5ML 10 ml Orally every 6-8 hours as needed for 8 days Feb, Not-Taking hydrocortisone 10 mg/ml / neomycin 3.5 mg/ml / polymyxin b 25232 unt/ml otic suspension (2 sources) Aminoglycoside Antibacterial, Polymyxin-class Antibacterial, Corticosteroid Start: 3 Saybvkkj-Figjfuyfg-XK [id number] 3 drops right ear Three times a day for 7 days June, Not-Taking methylPREDNISolone 4 mg oral tablet (8 sources) Corticosteroid Start: 3 methylPREDNISolone 4 MG as directed Orally Once a day for 6 days Feb, Not-Taking Start: 08-10-2013 Depo-Medrol 80 mg Jul, 80 mg Problems Active Problems Problem Classification Problem Date Documented Date Episodic/Chronic Cancer of other female genital organs (4 sources) Carcinoma in situ of vulva; Translations: [Carcinoma in situ of vulva] Onset: 07-09-2016 07-09-2016 Chronic Chronic obstructive pulmonary disease and bronchiectasis (1 source) Bronchitis, not specified as acute or chronic Episodic Genitourinary symptoms and ill-defined conditions (2 sources) Dysuria; Translations: [Dysuria] Onset: 04-11-2022 Episodic Other ear and sense organ disorders (2 sources) Hearing loss of right ear; Translations: [Other specified hearing loss, right ear] 01-13-2024 Chronic Other ear and sense organ disorders (2 sources) Sensorineural hearing loss, bilateral; Translations: [Sensorineural hearing loss, bilateral] Onset: 01-13-2024 01-13-2024 Chronic Other ear and sense organ disorders (1 source) Impacted cerumen, bilateral Episodic Other ear and sense organ disorders (1 source) Unspecified acute noninfective otitis externa, left ear Episodic Other ear and sense organ disorders (2 sources) Pain of ear structure; Translations: [Otalgia, right ear] 01-13-2024 Episodic Other ear and sense organ disorders (2 sources) Impacted cerumen of bilateral ears; Translations: [Impacted cerumen, bilateral] 01-13-2024 Episodic Other screening for suspected conditions (not mental disorders or infectious disease) (6 sources) Encounter for screening mammogram for malignant neoplasm of breast; Translations: [Mammography abnormal] Onset: 11-23-2021 Episodic Other upper respiratory infections (2 sources) Acute pharyngitis, unspecified; Translations: [Acute sinusitis, unspecified] Episodic Otitis media and related conditions (2 sources) Dysfunction of bilateral eustachian tubes; Translations: [Unspecified Eustachian tube disorder, bilateral] Onset: 01-13-2024 01-13-2024 Episodic Pneumonia (except that caused by tuberculosis or sexually transmitted disease) (1 source) Pneumonia, unspecified organism Episodic Urinary tract infections (1 source) Acute cystitis with hematuria Episodic Past or Other Problems Problem Classification Problem Date Documented Date Episodic/Chronic Administrative/social admission (2 sources) Other specified counseling; Translations: [Patient encounter status] Onset: 07-15-2016 Resolved: 03-05-2021 03-05-2021 Episodic Other nervous system disorders (1 source) Postoperative pain ; Translations: [Other acute postprocedural pain] Onset: 07-15-2016 Resolved: 03-05-2021 03-05-2021 Episodic Residual codes; unclassified (1 source) At risk for infection; Translations: [Other specified personal risk factors, not elsewhere classified] Onset: 07-15-2016 Resolved: 03-05-2021 03-05-2021 Episodic Results Test Name Value Interpretation Reference Range Facility Urinalysis - AUTOMATEDon Appearance (U) clear [facility] Other Bilirubin Ql (U) Negative [facility] Other Color (U) yellow [facility] Other Glucose Ql (U) Negative [facility] Other Hemoglobin Ql (U) small [email or web address] Other Ketones Ql (U) Negative [facility] Other Leukocyte esterase Test strip Ql (U) trace [facility] Other Nitrite Ql (U) Negative [facility] Other pH (U) 7.5 [pH] [facility] Other Protein Ql (U) Negative [facility] Other Specific gravity (U) [Rel density] 1.025 [facility] Other Urinalysis Gross Exam abnormal [facility] Other Urobilinogen (U) [Mass/Vol] 0.2 mg/dL [facility] Other Urinalysis - DIPSTICKon 03-27 Appearance (U) [facility] Other Bilirubin Ql (U) [facility] Other Color (U) [facility] Other Glucose Ql (U) [facility] Other Ketones Ql (U) [facility] Other Protein Ql (U) [facility] Other Specific gravity (U) [Rel density] [facility] Other Urinalysis - DIPSTICK [facility] Other Urine Cultureon 04-11-2022 Bacteria identified Cx Nom (U) Reason for Exam Dysuria Urine No Growth 2 Days PERFORMED BY: [place] [address] PATHOLOGIST [employer] SEWER YARY SOLER M.D. Normal [facility] Comment on above: Performed By: #### C UU #### [facility] [address] [place] [address] Bacteria identified Cx Nom (U) [facility] Other Quick Strepon 03-24-2022 S. pyogenes Org specific cx Ql (Throat) Negative [facility] [email or web address] Other Quick Strep [facility] Other CBC AUTO DIFFon 12-12-2021 BASO # 0.1 103/ul Normal 0.0-0.1 [facility] Comment on above: Performed By: #### C BC #### [facility] [address] [place] [address] Dr. Oliva Sullivan Basophils/100 WBC (Bld) 1.0 % Normal 0.2-2.0 [facility] Comment on above: Performed By: #### C BC #### [facility] [address] [place] [address] Dr. Oliva Sullivan EO # 0.1 103/ul Normal 0.0-0.7 [facility] Comment on above: Performed By: #### C BC #### [facility] [address] [address] [address] Oliva Sullivan Eosinophils/100 WBC (Bld) 1.6 % Normal 0.9-7.0 [facility] Comment on above: Performed By: #### C BC #### [facility] [address] [place] [address] Dr. Oliva Sullivan Erythrocyte distribution width (RBC) [Ratio] 12.6 % Normal 11.0-15.0 [facility] Comment on above: Performed By: #### C BC #### [facility] [address] [place] [address] Dr. Oliva Sullivan Hematocrit (Bld) [Volume fraction] 44.6 % Normal 36.0-48.0 [facility] Comment on above: Performed By: #### C BC #### [facility] [address] [place] [address] Dr. Oliva [place] Hemoglobin (Bld) [Mass/Vol] 14.6 g/dL Normal 12.0-16.0 [facility] Comment on above: Performed By: #### C BC #### [facility] [address] [place] [address] Dr. Oliva Sullivan IG # 0.01 10e3/ul Normal 0.00-0.03 [facility] Comment on above: Performed By: #### C BC #### [facility] [address] [place] [address] Dr. Oliva Sullivan IG % 0.2 % Normal 0.0-0.5 [facility] Comment on above: Performed By: #### C BC #### [facility] [address] [place] [address] Dr. Oliva Sullivan LYMPH # 2.3 103/ul Normal 1.2-3.8 [facility] Comment on above: Performed By: #### C BC #### [facility] [address] [place] [address] Dr. Oliva Sullivan Lymphocytes/100 WBC (Bld) 37.3 % Normal 20.5-60.0 [facility] Comment on above: Performed By: #### C BC #### [facility] [address] [place] [address] Dr. Oliva Sullivan MANUAL DIFF REQ NO Normal [facility] Comment on above: Performed By: #### C BC #### [facility] [address] [place] [address] Dr. Oliva Sullivan MCH (RBC) [Entitic mass] 31.5 pg Normal 26.7-34.0 [facility] Comment on above: Performed By: #### C BC #### [facility] [address] [place] [address] Dr. Oliva Sullivan MCHC (RBC) [Mass/Vol] 32.7 g/dL Normal 29.9-35.2 [facility] Comment on above: Performed By: #### C BC #### [facility] [address] [place] [address] Dr. Oliva Sullivan MCV (RBC) [Entitic vol] 96.1 fL Normal 81.0-99.0 [facility] Comment on above: Performed By: #### C BC #### [facility] [address] [place] [address] Dr. Oliva Sullivan MONO # 0.6 103/ul Normal 0.3-0.8 [facility] Comment on above: Performed By: #### C BC #### [facility] [address] [place] [address] Dr. Oliva Sullivan Monocytes/100 WBC (Bld) 9.7 % Normal 1.7-12.0 [facility] Comment on above: Performed By: #### C BC #### [facility] [address] [place] [address] Dr. Oliva Sullivan NEUT # 3.1 103/ul Normal 1.4-6.5 [facility] Comment on above: Performed By: #### C BC #### [facility] [address] [place] [address] Dr. Oliva Sullivan Neutrophils/100 WBC (Bld) 50.2 % Normal 43.0-75.0 [facility] Comment on above: Performed By: #### C BC #### [facility] [address] [place] [address] Dr. Oliva Sullivan Platelet mean volume (Bld) [Entitic vol] 10.1 fL Normal 9.5-13.5 [facility] Comment on above: Performed By: #### C BC #### [facility] [address] [place] [address] Dr. Oliva Sullivan PLT 328 103/ul Normal 150-450 [facility] Comment on above: Performed By: #### C BC #### [facility] [address] [place] [address] Dr. Oliva Sullivan RBC 4.64 106/ul Normal 4.20-5.40 [facility] Comment on above: Performed By: #### C BC #### [facility] [address] [address] [address] Oliva Sullivan WBC 6.2 103/ul Normal 4.0-11.0 [facility] Comment on above: Performed By: #### C BC #### [facility] [address] [place] [address] Dr. Oliva Sullivan GLYCOHEMOGLOBIN A1Con 2021 ADA RECOMMENDATION SEE BELOW Normal [facility] Comment on above: Result Comment: ADA RECOMMENDED LIMIT 4.0 - 6.0 ADA THERAPEUTIC TARGET < 7.0 ACTION SUGGESTED > 7.0 Performed By: #### A 1C #### [facility] [address] [place] [address] Dr. Oliva Sullivan Glucose [Mass/Vol] 120 mg/dL Normal [facility] Comment on above: Performed By: #### A 1C #### [facility] [address] [place] [address] Dr. Oliva Sullivan HbA1c (Bld) [Mass fraction] 5.8 % Normal 4.5-6.2 [facility] Comment on above: Performed By: #### A 1C #### [facility] [address] [place] [address] Dr. Oliva Sullivan LIPID PROFILEon 12-12-2021 CHOL-HDL RATIO NORM SEE BELOW Normal [facility] Comment on above: Result Comment: 3.3 - 4.4 LOW RISK 4.4 - 7.1 AVERAGE RISK 7.1 - 11.0 MODERATE RISK >11.0 HIGH RISK Performed By: #### T SH, LIPID, LIVER, BMP #### [facility] [address] [place] [address] Dr. Oliva Sullivan Cholesterol [Mass/Vol] 202 mg/dL Critically high <=200 [facility] Comment on above: Performed By: #### T SH, LIPID, LIVER, BMP #### [facility] [address] [address] [address] Oliva Sullivan Cholesterol in HDL [Mass/Vol] 57 mg/dL Normal 40-60 [facility] Comment on above: Performed By: #### T SH, LIPID, LIVER, BMP #### [facility] [address] [address] [address] Oliva Sullivan Cholesterol in LDL [Mass/Vol] 127.2 mg/dL Normal [facility] Comment on above: Performed By: #### T SH, LIPID, LIVER, BMP #### [facility] [address] [address] [address] Oliva Sullivan Cholesterol.total/Ch olesterol in HDL [Mass ratio] 3.5 {ratio} Normal [facility] Comment on above: Performed By: #### T SH, LIPID, LIVER, BMP #### [facility] [address] [address] [address] Oliva Sullivan HDL NORMAL > or = 60 mg/dl - LOW CARDIOVASCULAR RISK <40 mg/dl - HIGH CARDIOVASCULAR RISK Normal [facility] Comment on above: Performed By: #### T SH, LIPID, LIVER, BMP #### [facility] [address] [address] [address] Oliva Sullivan LDL CALC NORMAL SEE BELOW Normal [facility] Comment on above: Result Comment: <100 mg/dl OPTIMAL 100 - 129 mg/dl NEAR OR ABOVE OPTIMAL 130 - 159 mg/dl BORDERLINE HIGH 160 - 189 mg/dl HIGH >190 mg/dl VERY HIGH Performed By: #### T SH, LIPID, LIVER, BMP #### [facility] [address] [address] [address] Oliva Sullivan Triglyceride [Mass/Vol] 89 mg/dL Normal <=150 [facility] Comment on above: Performed By: #### T SH, LIPID, LIVER, BMP #### [facility] [address] [address] [address] Oliva Sullivan VLDL CALC 17.8 mg/dL Normal [facility] Comment on above: Performed By: #### T SH, LIPID, LIVER, BMP #### [facility] [address] [place] [address] Dr. Oliva Sullivan LIVER PROFILEon 12-12-2021 Albumin [Mass/Vol] 4.2 g/dL Normal 3.4-5.0 [facility] Comment on above: Performed By: #### T SH, LIPID, LIVER, BMP #### [facility] [address] [place] [address] Dr. Oliva Sullivan Albumin/Globulin [Mass ratio] 1.1 {ratio} Normal [facility] Comment on above: Performed By: #### T SH, LIPID, LIVER, BMP #### [facility] [address] [place] [address] Dr. Oliva Sullivan ALP [Catalytic activity/Vol] 97 U/L Normal 46-116 [facility] Comment on above: Performed By: #### T SH, LIPID, LIVER, BMP #### [facility] [address] [place] [address] Dr. Oliva Sullivan ALT [Catalytic activity/Vol] 42 U/L Normal 14-59 [facility] Comment on above: Performed By: #### T SH, LIPID, LIVER, BMP #### [facility] [address] [place] [address] Dr. Oliva Sullivan AST [Catalytic activity/Vol] 27 U/L Normal 15-37 [facility] Comment on above: Performed By: #### T SH, LIPID, LIVER, BMP #### [facility] [address] [place] [address] Dr. Oliva Sullivan BILI, CONJUGATED 0.1 mg/dL Normal 0.0-0.2 [facility] Comment on above: Performed By: #### T SH, LIPID, LIVER, BMP #### [facility] [address] [place] [address] Dr. Oliva Sullivan Bilirubin [Mass/Vol] 0.4 mg/dL Normal 0.2-1.0 [facility] Comment on above: Performed By: #### T SH, LIPID, LIVER, BMP #### [facility] [address] [place] [address] Dr. Oliva Sullivan Globulin (S) [Mass/Vol] 3.7 g/dL Normal [facility] Comment on above: Performed By: #### T SH, LIPID, LIVER, BMP #### [facility] [address] [address] [address] Oliva Sullivan Protein [Mass/Vol] 7.9 g/dL Normal 6.4-8.2 [facility] Comment on above: Performed By: #### T SH, LIPID, LIVER, BMP #### [facility] [address] [address] [address] Oliva Sullivan PROF CHEM 8 (BAS METB)on Anion gap [Moles/Vol] 11.5 mmol/L Normal [facility] Comment on above: Performed By: #### T SH, LIPID, LIVER, BMP #### [facility] [address] [place] [address] Dr. Oliva Sullivan Calcium [Mass/Vol] 9.4 mg/dL Normal 8.5-10.1 [facility] Comment on above: Performed By: #### T SH, LIPID, LIVER, BMP #### [facility] [address] [address] [address] Oliva Sullivan Chloride [Moles/Vol] 99 mmol/L Normal 98-107 [facility] Comment on above: Performed By: #### T SH, LIPID, LIVER, BMP #### [facility] [address] [address] [address] Oliva Sullivan CO2 [Moles/Vol] 28.3 mmol/L Normal 21.0-32.0 [facility] Comment on above: Performed By: #### T SH, LIPID, LIVER, BMP #### [facility] [address] [address] [address] Oliva Sullivan Creatinine [Mass/Vol] 0.78 mg/dL Normal 0.55-1.02 [facility] Comment on above: Performed By: #### T SH, LIPID, LIVER, BMP #### [facility] [address] [address] [address] Oliva Sullivan EGFR-AF [place]THER[place]ISH >60 Normal >=60 [facility] Comment on above: Performed By: #### T SH, LIPID, LIVER, BMP #### [facility] [address] [address] [address] Oliva Sullivan EGFR-NON AF [place]THER[place] >60 Normal >=60 [facility] Comment on above: Performed By: #### T SH, LIPID, LIVER, BMP #### [facility] [address] [address] [address] Oliva Sullivan Glucose [Mass/Vol] 86 mg/dL Normal 74-106 [facility] Comment on above: Performed By: #### T SH, LIPID, LIVER, BMP #### [facility] [address] [address] [address] Oliva Sullivan Potassium [Moles/Vol] 4.8 mmol/L Normal 3.5-5.1 [facility] Comment on above: Performed By: #### T SH, LIPID, LIVER, BMP #### [facility] [address] [place] [address] Dr. Oliva Sullivan Sodium [Moles/Vol] 134 mmol/L Critically low 136-145 [facility] Comment on above: Performed By: #### T SH, LIPID, LIVER, BMP #### [facility] [address] [place] [address] Dr. Oliva Sullivan Urea nitrogen [Mass/Vol] 12.0 mg/dL Normal 7.0-18.0 [facility] Comment on above: Performed By: #### T SH, LIPID, LIVER, BMP #### [facility] [address] [place] [address] Dr. Oliva Sullivan Urea nitrogen/Creatinine [Mass ratio] 15.4 mg/mg Normal [facility] Comment on above: Performed By: #### T SH, LIPID, LIVER, BMP #### [facility] [address] [place] [address] Dr. Oliva Sullivan TSHon 12-12-2021 TSH 2.314 uIU/mL Normal 0.358-3.740 [facility] Comment on above: Performed By: #### T SH, LIPID, LIVER, BMP #### [facility] [address] [place], [place] [address] Dr. Oliva Sullivan MG MAMM SCREEN 3D DELONTE CADon 11-23-2021 MG MAMM SCREEN 3D DELONTE CAD Patient: ROCIO STANFORD Exam Date: 11/23/2021 : 1960 Gender:F Ordering : DR EDWARD OLEARY . Admission #: [id number] Family : JACKIE MICHAEL Order #: [id number] CLICK HERE TO VIEW EXAM RADIOLOGY REPORT PROCEDURE: MAMMOGRAM SCREENING 3D BILATERAL CAD COMPARISON: MG MAMM SCREEN DELONTE W CAD, 10/19/2019. MG MAMM SCREEN 3D DELONTE CAD, 10/20/2020. INDICATIONS: Screening mammography Calculator Name NCI Breast Cancer Risk Assessment Tool 5 Year Breast Cancer Risk 1.40% Lifetime Breast Cancer Risk 6.00% Personal Breast Cancer No Personal Ovarian Cancer No Treatments None Family Cancers None LOCATION: [facility] BREAST COMPOSITION: Heterogeneously dense,which may obscure small [...] Culp MD on 11/23/2021 at 12:54 Normal [facility] Vital Signs Date Time Vital Sign Value Performing Clinician Facility 01-13-2024 09:08-0500 Body height 147.3 cm Ness Ogden MD Work Phone: [facility] 01-13-2024 09:08-0500 Body mass index (BMI) [Ratio] 22.57 kg/m2 Ness Ogden MD Work Phone: [facility] 01-13-2024 09:08-0500 Body weight 48.99 kg Ness Ogden MD Work Phone: [facility] 01-13-2024 09:08-0500 Diastolic blood pressure 80 mm[Hg] Ness Ogden MD Work Phone: [facility] 01-13-2024 09:08-0500 Systolic blood pressure 125 mm[Hg] Ness Ogden MD Work Phone: [email or web address] 10-22-2022 09:20-0400 Body height 147.32 cm Mily Martinez Other [facility] Other 10-22-2022 09:20-0400 Body mass index (BMI) [Ratio] 22.69 kg/m2 Mily Michelle Other [facility] Other 10-22-2022 09:20-0400 Body temperature 97.4 [degF] Mily Michelle Other [facility] Other 10-22-2022 09:20-0400 Body weight 49.26 kg Mily Michelle Other [facility] Other 10-22-2022 09:20-0400 Diastolic blood pressure 85 mm[Hg] Mily Michelle Other [facility] Other 10-22-2022 09:20-0400 Respiratory rate 18 /min Mily Michelle Other [facility] Other 10-22-2022 09:20-0400 SaO2% (BldA) [Mass fraction] 99 % Mily Michelle Other [facility] Other 10-22-2022 09:20-0400 Systolic blood pressure 141 mm[Hg] Mily Michelle Other [facility] Other 07-07-2022 11:50-0400 Body height 147.32 cm Mily Michelle Other [facility] Other 07-07-2022 11:50-0400 Body mass index (BMI) [Ratio] 22.95 kg/m2 Mily Martinez Other [facility] Other 07-07-2022 11:50-0400 Body temperature 97.1 [degF] Mily Martinez Other [facility] Other 07-07-2022 11:50-0400 Body weight 49.81 kg Mily Martinez Other [facility] Other 07-07-2022 11:50-0400 Diastolic blood pressure 80 mm[Hg] Mily Martinez Other [facility] Other 07-07-2022 11:50-0400 Respiratory rate 18 /min Mily Martinez Other [facility] Other 07-07-2022 11:50-0400 SaO2% (BldA) [Mass fraction] 98 % Mily Martinez Other [facility] Other 07-07-2022 11:50-0400 Systolic blood pressure 135 mm[Hg] Mily Martinez Other [facility] Other 04-11-2022 13:00-0500 Body height 147.32 cm Rashmi Brit Other [facility] Other 04-11-2022 13:00-0500 Body mass index (BMI) [Ratio] 22.53 kg/m2 Rashmi Brit Other [facility] Other 04-11-2022 13:00-0500 Body temperature 98 [degF] Rashmi Brit Other [facility] Other 04-11-2022 13:00-0500 Body weight 48.9 kg Rashmi Perea Other [facility] Other 04-11-2022 13:00-0500 Diastolic blood pressure 83 mm[Hg] Rashmi Madrigalault Other [facility] Other 04-11-2022 13:00-0500 SaO2% (BldA) [Mass fraction] 98 % Rashmi Perea Other [facility] Other 04-11-2022 13:00-0500 Systolic blood pressure 128 mm[Hg] Rashmi Madrigalault Other [facility] Other 03-24-2022 11:30-0500 Body height 147.32 cm Rashmi Madrigalault Other [facility] Other 03-24-2022 11:30-0500 Body mass index (BMI) [Ratio] 24.03 kg/m2 Rashmi Madrigalault Other [facility] Other 03-24-2022 11:30-0500 Body temperature 97.9 [degF] Rashmi Madrigalault Other [facility] Other 03-24-2022 11:30-0500 Body weight 52.16 kg Rashmi Madrigalault Other [facility] Other 03-24-2022 11:30-0500 Diastolic blood pressure 83 mm[Hg] Rashmi Madrigalault Other [facility] Other 03-24-2022 11:30-0500 Respiratory rate 18 /min Rashmi Perea Other [facility] Other 03-24-2022 11:30-0500 SaO2% (BldA) [Mass fraction] 92 % Rashmi Perea Other [facility] Other 03-24-2022 11:30-0500 Systolic blood pressure 130 mm[Hg] Rashmi Perea Other [facility] Other 03-05-2022 13:30-0500 Body height 147.32 cm Rashmi Perea Other [facility] Other 03-05-2022 13:30-0500 Body mass index (BMI) [Ratio] 24.03 kg/m2 Rashmi Perea Other [facility] Other 03-05-2022 13:30-0500 Body temperature 98.1 [degF] Rashmi Perea Other [facility] Other 03-05-2022 13:30-0500 Body weight 52.16 kg Rashmi Perea Other [facility] Other 03-05-2022 13:30-0500 Respiratory rate 18 /min Rashmi Perea Other [facility] Other 03-05-2022 13:30-0500 SaO2% (BldA) [Mass fraction] 98 % Rashmi Perea Other [facility] Other Encounters Encounter Date Encounter Type Care Provider Facility Start: 01-13-2024 End: 01-13-2024 Norah Ogden MD Work Phone: [facility] Start: 01-13-2024 End: 01-13-2024 Bamboo flowsheet Ness Ogden MD Work Phone: [facility] Start: 01-13-2024 End: 01-13-2024 Office outpatient visit 15 minutes Ness Ogden MD Work Phone: [facility] Comment on above: Acute otalgia, right (Primary Dx); Other specified hearing loss of right ear, unspecified hearing status on contralateral side; Bilateral impacted cerumen Start: 01-13-2024 End: 01-13-2024 Orders Only Jackie MASSEY Work Phone: [facility] Comment on above: Abnormal mammogram o f left breast (Primary Dx) Start: 03-11-2023 End: 03-11-2023 ambulatory JACKIE MICHAEL [facility] Start: 10-22-2022 End: 10-22-2022 ambulatory Milyparker Martinez Other [facility] Other Start: 10-22-2022 Office outpatient vi sit 15 minutes Mily Michelle [facility] Start: 07-07-2022 End: 07-07-2022 ambulatory Mily Michelle Other [facility] Other Start: 07-07-2022 Office outpatient vi sit 15 minutes Mily Michelle [facility] Start: 04-11-2022 Office outpatient vi sit 15 minutes Rashmi Perea [facility] Start: 04-11-2022 End: 04-11-2022 ambulatory Rashmi Perea [facility] Work Phone: Start: 04-11-2022 End: 04-11-2022 Departed Referred HAND TIER-C Rashmi Perea Work Phone: [facility] Work Phone: Start: 03-24-2022 End: 03-24-2022 ambulatory Rashmi Perea Other [facility] Other Start: 03-24-2022 Office outpatient vi sit 15 minutes Rashmi Brit [facility] Start: 03-05-2022 End: 03-05-2022 ambulatory Rashmi Perea Other [facility] Other Start: 03-05-2022 Office outpatient ne w 20 minutes Rashmi Madrigalault [facility] Start: 12-16-2021 Encounter for genera l adult medical examination without abnormal findings DR EDWARD OLEARY [facility] Start: 12-12-2021 End: 12-13-[address] EDWARD OLEARY Facility:[facility] Start: 12-12-2021 End: 12-13-2021 Encounter for general adult medical examination without abnormal findings DR EDWARD OLEARY Facility:[facility] Start: 11-23-2021 End: 11-24-[address] EDWARD OLEARY Facility:[facility] Procedures Date Procedure Procedure Detail Performing Clinician Start: 01-09-2024 Mammography Ness cook MD Work Phone: Start: 03-11-2023 Follow-up visit Follow-up CHANDRAKANT MICHAEL Plan of Treatment Date Care Activity Detail Author Start: 03-13-2027 Screening for malign ant neoplasm of cervix [facility] Start: 01-08-2025 Screening for malign ant neoplasm of breast Mammogram [facility] Start: 12-25-2024 Screening for malign ant neoplasm of colon [facility] Start: 03-16-2024 End: 03-16-2024 Patient encounter procedure 03/16/2024 9:00 AM EST Office Visit Keira Gallego [facility] [address] [place] [address] Jackie Michael PA [address] [place] [address] Keira Gallego [facility] Start: 03-11-2024 Adult BMI Screening Adult BMI Screen [facility] Start: 01-13-2024 End: 01-12-2025 US Breast - left Ultrasound breast complete left Imaging Routine Abnormal mammogram of left breast Expected: 01/13/2024, Expires: 01/12/2025 [facility] Work Phone: Comment on above: Expected: 01/13/2024 , Expires: 01/12/2025 Start: 01-13-2024 End: 01-13-2024 Patient encounter procedure 01/13/2024 9:10 AM EST Office Visit [facility] [address] [facility] [address] [place] [id number] Ness Ogden MD [address] [facility] [address] [place] [address] Arrived [facility] Comment on above: Arrived Start: 10-26-2023 COVID-19 Vaccine ( season) COVID-19 Vaccine ( season) [facility] Start: 10-26-2023 Influenza vaccination Influenza Vacc ine [facility] Start: 06-22-2023 Fall Risk Screening Fall Risk Screen ing [facility] Start: 06-22-2023 Pneumococcal Vaccine : 65+ Years (1 of 1 - PCV) Pneumococcal Vaccine: 65+ Years (1 of 1 - PCV) [facility] Start: 03-13-2023 Tobacco Screening Tobacco Screening [facility] Start: 04-11-2022 Bacteria identified in Urine by Culture [facility] Start: 2008 Administration of varicella zoster vaccine Zoster (Shingles) Vaccine (1 of 2) [facility] Start: 06-22-1979 Screening for malign ant neoplasm of cervix Pap Smear [facility] Start: 1977 DTaP,Tdap and Td Vac cines (1 - Tdap) DTaP,Tdap and Td Vaccines (1 - Tdap) [facility] Start: 1970 Depression Screening Depression Scre ening [facility] Start: 1960 Medicare Annual Well ness (AWV) Medicare Annual Wellness (AWV) [facility] Start: 1960 Screening for malign ant neoplasm of colon [facility] Immunizations Immunization Date Immunization Notes Care Provider Fa cility 12-25-2022 influenza virus vaccine, unspecified formulation Jackie MASSEY Work Phone: [facility] Payers Date Payer Category Payer Medicaid [employer] A [employer] [id number] 2023 Medicare [id number] 2023 Managed Care [facility] (unspecified) [facility] [id number] 2023 Unknown [id number] 2022 Self-pay 2022 Unknown [id number] 2022 Medicaid [employer] [id number] 2022 Unknown [id number] 1959 Unknown [id number] 1958 Unknown [id number] 1958 Unknown [id number] 1958 Unknown [id number] 1958 Unknown [id number] Medicaid [id number] Private Health Insurance [facility] Claims [id number] Unknown [id number] Social History Date Type Detail Facility Tobacco smoking status ALIS Unknown if ever smoked [facility] Work Phone: Start: 1960 Sex Assigned At Female [facility] Start: 03-13-2022 End: 01-13-2024 Sex Assigned At [facility] [email or web address] Other Start: 03-05-2021 Tobacco smoking status ALIS Ex-smoker [facility] History of tobacco use Current smoker [facility] History of tobacco use Cigarette Smoker [facility] Start: 03-05-2021 Tobacco use and exposure Former smokeless tobacco user [facility] Start: 03-13-2022 Alcoholic beverage intake Current non-drinker of alcohol (finding) [facility] Start: 03-13-2022 End: 01-13-2024 History of Social function [facility] Childcare Unknown [facility] Start: 12-28-2018 Tobacco Comment smokes occassionally [facility] Start: 1960 Sex assigned at Not on file [facility] Start: 09-29-2014 Sex Female (finding) [facility] s tem Tobacco smoking status ALIS Tobacco smoking consumption unknown [facility] Start: 01-13-2024 Tobacco smoking status ALIS Never smoked tobacco [facility] Start: 01-13-2024 Tobacco use and exposure Smokeless tobacco non-user [facility] Start: 01-13-2024 Alcoholic beverage intake Current drinker of alcohol (finding) [facility] Clinical Notes 03-05-2022 to 01-13-2024 Ness Ogden MD - 01/13/2024 9:10 AM EST Note Date & Type Note Facility 01-13-2024 History of Presen t illness Narrative Images from the original note were not included. Subjective Patient ID: Rocio Stanford is a 63 y.o. female who presents for Ear Problem (Ear pain and plugged ) Pt reports a couple week h/o RT ear pain. Some HL per pt. No otorrhea. 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 No pertinent surgical history. Allergies Allergen Reactions Penicillins Hives and Unknown Sulfa Antibiotics Hives and Unknown Sulfamethoxazole-Trimethoprim Unknown Current Outpatient Medications on File Prior to Visit Medication Sig Dispense Refill acetaminophen (Tylenol) 500 MG tablet Take 500 mg by mouth every 6 (six) hours if needed celecoxib (CeleBREX) 200 MG capsule Take 1 capsule (200 mg) by mouth in the morning and 1 capsule (200 mg) before bedtime. 60 capsule 3 Multiple Vitamins-Minerals (multivitamin with minerals) tablet Take 1 tablet by mouth Daily No current facility-administered medications on file prior to visit. Objective Last Recorded Vitals Vitals: 01/13/24 0908 BP: 125/80 ENT Physical Exam Constitutional Appearance: patient appears well-developed, well-nourished and well-groomed, Communication/Voice: communication appropriate for developmental age; vocal quality normal; Ear Ear comments: Delonte cerumen impaction. O/W normal Oral Cavity/Oropharynx Lips: normal; Teeth: normal; Gums: gingiva normal; Tongue: normal; Oral mucosa: normal; Hard palate: normal; Base of Tongue: normal; OC/OP comments: IDL - no mass or ulcer Neck Neck: neck normal; neck palpation normal; Thyroid: thyroid normal; Patient ID: Rocio Stanford is a 63 y.o. female. Procedures Cerumen was removed from the ears using binocular microscopy under micro with suction, curette and foreceps Assessment/Plan Diagnoses and all orders for this visit: Acute otalgia, right Other specified hearing loss of right ear, unspecified hearing status on contralateral side Bilateral impacted cerumen Ears sx resolved per pt once ears debrided. F/U if recur documented in this encounter [facility] 10-22-2022 Evaluation note Encounter Date Diagnosis Assessment [...] no improvement in 2 to 3 days [facility] Other 05-14-2023 Evaluation note* Encounter Date Diagnosis Assessment Notes Treatment Notes Treatment Clinical Notes June, Bilateral impacted cerumen (ICD-10 - [...] Otitis externa home care material was printed [facility] Other 02-16-2023 Evaluation note* Encounter Date Diagnosis Assessment Notes Treatment Notes Treatment Clinical Notes Mar, Dysuria (ICD-10 - R30.0) Mar, [...] completed to make sure infection has cleared. [facility] Other 01-29-2023 Evaluation note* Encounter Date Diagnosis Assessment Notes Treatment Notes Treatment Clinical Notes Feb, Sore throat (ICD-10 - J02.9) [...] weeks for the cough to go away [facility] Other 01-10-2023 Evaluation note* Encounter Date Diagnosis Assessment Notes Treatment Notes Treatment Clinical Notes Feb, Bronchitis (ICD-10 - J40) Take [...] weeks for the cough to go away [facility] Other Evaluation noteNo assessment information available [facility] Work Phone: Evaluation note* Diagnosis Abnormal mammogram of left breast- Primary [facility] Diagnosis Acute otalgia, right- Primary Other specified hearing loss of right ear, unspecified hearing status on contralateral side Bilateral impacted cerumen Impacted cerumen [facility] - Reported* Type Description Date Medical History Osteoarthritis Surgical History cholecystectomy Surgical History tonsillectomy Surgical History wisdom teeth Hospitalization History see above [facility] Other InstructionsNot on filedocumented in this encounter [facility] Summary Purpose Family History No Family History Records FoundNo Family History Records FoundNo Family History Records FoundNo Family History Records Found Advance Directives No Advanced Directives Records FoundNo Advanced Directives Records FoundNo Advanced Directives Records FoundNo Advanced Directives Records Found Chief Complaint and Reason for Visit Chief Complaint Dysuria Additional Source Comments INFORMATION SOURCE (unrecogn ized section and content) DATE CREATED AUTHOR 01/23/2022 [facility] DATE CREATED AUTHOR AUTHOR'S ORGANIZ ATION 04/23/2022 [facility] DATE CREATED AUTHOR AUTHOR'S ORGANIZ ATION 03/12/2023 [facility] DATE CREATED AUTHOR AUTHOR'S ORGANIZ ATION 01/15/2024 [facility] [employer]IC Care Teams (unrecognized sec tion and content) Team Status: Inactive Member Role Status Dates HOLDEN Gray Attending Provider Active Supplier Quality Engineering Manager Relationship Specialty Start Date End Date Edward Oleary MD PCP - General 07/09/16 Supplier Quality Engineering Manager Relationship Specialty Start Date End Date Edward Oleary MD [address] [place] [phone] PCP - [employer] 05/26/23 Supplier Quality Engineering Manager Relationship Specialty Start Date End Date Edward Oleary MD [address] [place] [phone] PCP - [employer] 05/26/23 Goals (unrecognized section and content) Goals may be documented in a n alternate sectionNo InformationNo InformationNo InformationNo InformationNo InformationNot on filedocumented as of this encounter REASON FOR VISIT (unrecogniz ed section and content) Reason Comments Ear Problem Ear pain and plugged FOR RECORDS PERTAINING TO PATIENTS WHO ARE [...] BE BASED ON THE PRIMARY CLINICAL RECORDS. [facility]. provides no warranty or guarantee of the accuracy or completeness of information in this document.
== END 2024-01-27 08:51 | disposition home or self-care (01) ==
LOC: US 08:50
PROVIDERS: PCP Family Medicine
DX: R92.8 Other abnormal and inconclusive findings on diagnostic imaging of breast (principal)
CPT/HCPCS: 76641

== ENCOUNTER 2025-01-26 09:59 | Outpatient (OUT) | payer MEDICARE, SELFPAY ==
--- OUTSIDE RECORDS SUMMARY | 2025-01-26 10:02 | XMS_ITS | Clinical Summary ---
Author Organization [facility] Address [address] [place] [address] Care Team Providers Care In[employer] Name Role Phone Edward Feldman MD Primary Care Provider [phone] Allergies Active AllergyReactionsCriticalityNoted DateCommentsPenicillinsHives,Unknown Aycluz9007/09/2016Sulfa AntibioticsHives,TeubiboJcggps90/16/2017 Sulfamethoxazole-KlusxmooimskKikgzbn67/19/2024 Medications MedicationSigDispense QuantityRefillsLast FilledStart DateEnd DateStatus acetaminophen (Tylenol) 500 MG tablet Take 500 mg by mouth every 6 (six) hours if neededActive Multiple Vitamins-Minerals (multivitamin with minerals) tablet Take 1 tablet by mouth DailyActive linaCLOtide (Linzess) 290 MCG capsule Indications:Irritable bowel syndrome with constipationTake 1 capsule (290 mcg) by mouth in the morning. Take before meals. Do not crush or chew.. 30 capsule 4Active celecoxib (CeleBREX) 200 MG capsule Indications:ArthritisTake 1 capsule (200 mg) by mouth in the morning and 1 capsule (200 mg) before bedtime. 60 capsule 5Active Active Problems ProblemNoted DateDiagnosed DateMedicare annual wellness visit, subsequent 05/12/2024 Assessment & Plan (05/12/2024 10:20 AM EDT): Reviewed labs. Discussed proper diet and regular aerobic exercise. Need aerobic exercise 5-6 days aweek for 30 minutes at a time. Smaller portions and limit total calories. Will be due for repeat cologuard in December. Tetanus every 10 years. Advised not to smoke. Irritable bowel syndrome with rwawjqvjbgno66/16/2024 Assessment & Plan (02/09/2024 11:29 AM EST): Worsening symptoms and resume linzess. Continue high fiber diet. Microscopic nesbarvks51/16/2024Hip pain, right02/09/2024hronic lumbosacral pain 02/09/20246874Cqkquraot71/16/9829Apkpmfusqgq36/16/2024Encounter for long-term current use of bjjzgyrzqa32/16/2024Generalized osteoarthritis of multiple sites 02/09/2024 Assessment & Plan (02/09/2024 11:29 AM EST): Pain stable and use celebrex PRN. Dysfunction of both eustachian tubes01/13/2024Sensorineural hearing loss (SNHL) of both ears01/13/2024arcinoma in situ of vulva07/09/2016 Family History Medical HistoryRelationNameCommentsNo Known ProblemsFatherNo Known Problems MotherRelationNameStatusCommentsFatherDeceasedMotherDeceased Social History Tobacco UseTypesPacks/DayYears UsedDateSmoking Tobacco: NeverSmokeless Tobacco: Never Tobacco Cessation:Counseling Given: Not Answered Alcohol UseStandard Drinks/WeekCommentsYes1 (1 standard drink = 0.6 oz pure alcohol)B1300 Health LiteracyAnswerDate RecordedHow often do you need to have someone help you when you read instructions, pamphlets, or other written material from your doctor or pharmacy?Never05/11/2024Social Connection and Isolation PanelAnswerDate RecordedIn a typical week, how many times do you talk on the phone with family, friends, or neighbors?Patient /18/2025How often do you get together with friends or relatives?Patient pugbfdzg81/18/2025 How often do you attend nondenominational or rastafarian services?Patient yaekmtfz17/18/2025 Do you belong to any clubs or organizations such as nondenominational groups, unions, fraternal or athletic groups, or school groups?Patient ssbiohuj51/18/2025How often do you attend meetings of the clubs or organizations you belong to?Patient xjedwbeu88/18/2025re you , , , , never , or living with a partner?Slwhcob9505/11/2024UDIT-CAnswerDate RecordedQ1: How often do you have a drink containing alcohol?Patient zxjumugc66/18/2025Q2: How many drinks containing alcohol do you have on a typical day when you are drinking?Patient gfxkzraa98/18/2025Q3: How often do you have six or more drinks on one occasion?Patient okdxfniv34/18/2025Overall Financial Resource Strain (CARDIA)AnswerDate RecordedHow hard is it for you to pay for the very basics like food, housing, medical care, and heating?Not hard at all05/11/2024PHQ-2 AnswerDate RecordedPatient Health Questionnaire-2 Xqylj139Finintermountain medical center [place] of Occupational Health - Occupational Stress QuestionnaireAnswerDate RecordedDo you feel stress - tense, restless, nervous, or anxious, or unable to sleep at night because yourmind is troubled all the time - these days?Not at all 05/11/2024Exercise Vital SignAnswerDate RecordedOn average, how many days per week do you engage in moderate to strenuous exercise (like a brisk walk)?5 days 05/11/2024On average, how many minutes do you engage in exercise at this level? 70 min05/11/2024Hunger Vital SignAnswerDate RecordedWithin the past 12 months, you worried that your food would run out before you got the money to buymore. Never true05/11/2024Within the past 12 months, the food you bought just didn't last and you didn't have money to get more.Never true05/11/2024PRAPARE - TransportationAnswerDate RecordedIn the past 12 months, has lack of transportation kept you from medical appointments or from getting medications?No 05/11/2024In the past 12 months, has lack of transportation kept you from meetings, work, or from getting things needed for daily living?No05/11/2024 Housing Stability Vital SignAnswerDate RecordedIn the last 12 months, was there a time when you were not able to pay the mortgage or rent on time?Patient kdjmszou88/18/2025Number of Times Moved in the Last YearNot on file05/11/2024t any time in the past 12 months, were you homeless or living in a detention (including now)?No05/11/2024CommentsUnknownSex and Gender Information ValueDate RecordedSex Assigned at BirthNot on fileLegal KmlYgwtxk62/15/2023 7:19 PM EDTGender IdentityNot on fileSexual OrientationNot on file Last Filed Vital Signs Vital SignReadingTime TakenCommentsBlood Hgihbfbq095/62005/12/2024 9:59 AM EDT Womip130305/12/2024 9:59 AM PURKptoyjxwlzc01.3 ??C (97.3 ??F)05/12/2024 9:59 AM EDTRespiratory Dfas202105/12/2024 9:59 AM EDTOxygen Lojwsicani71%05/12/2024 9:59 AM EDTInhaled Oxygen Concentration--Chsfck75.9 kg (110 lb)05/12/2024 9:59 AM EDT Ngpyku833.3 cm (4' 10 )05/12/2024 9:59 AM EDTBody Mass Index22.9905/12/2024 9:59 AM EDT Plan of Treatment Not on file Insurance Care Teams Team MemberRelationshipSpecialtyStart DateEnd Date Edward Feldman MD PCP - GeneralFamily Oikbahvg06/16/24
--- OUTSIDE RECORDS SUMMARY | 2025-01-26 10:02 | XMS_ITS | Clinical Summary ---
Author Organization [employer] Address [id number] [place] [address] Care Team Providers Care Health Analyst Name Role Phone Edward Feldman MD Primary Care Provider [phone] Allergies Active AllergyReactionsCriticalityNoted DateCommentsPenicillinsHivesMedium 07/09/2016Sulfa (Sulfonamide Antibiotics)KljwzSsmqpr69/16/2017 Medications MedicationSigDispense QuantityRefillsLast FilledStart DateEnd DateStatus celecoxib (CeleBREX) 200 mg capsule Take 1 capsule (200 mg total) by mouth in the morning and 1 capsule (200 mg total) before bedtime.Active acetaminophen (TYLENOL) 500 mg tablet Take 1 tablet (500 mg total) by mouth every 6 (six) hours as needed for pain. Active multivit-min/ferrous fumarate (MULTI VITAMIN ORAL) Take by mouth.Active linaCLOtide (LINZESS) 290 mcg capsule Take 1 capsule (290 mcg total) by mouth in the morning.Active Active Problems ProblemNoted DateDiagnosed DateCarcinoma in situ of vulva07/09/2016 Resolved Problems ProblemNoted DateDiagnosed DateResolved DatePost-op paint risk for infection due to surgical yohmucjib85Encounter for surgical ecmgnscaaj71 Family History Medical HistoryRelationNameCommentsAnesthesia problemsNeg HxBreast cancerNeg Hx Cervical cancerNeg HxLung cancerNeg HxOvarian cancerNeg Hx Social History Tobacco UseTypesPacks/DayYears UsedDateSmoking Tobacco: FormerCigarettes Smokeless Tobacco: Former Comments:smokes occassionall y Alcohol UseStandard Drinks/WeekCommentsNo0 (1 standard drink = 0.6 oz pure alcohol)ChildcareAnswerDate WthjhdzcYnkaqdskmHyckjll13/12/2019EmploymentAnswer Date NgnqmhrsMutmsyagnyJnrssgs95/12/2019Purpose - LifeAnswerDate RecordedPurpose and direction in rpgdPktxwuc77/11/2021CommentsNoSex and Gender InformationValueDate RecordedSex Assigned at BirthNot on fileLegal SexFemale 09/29/2014 11:38 AM EDTGender IdentityNot on fileSexual OrientationNot on file Last Filed Vital Signs Vital SignReadingTime TakenCommentsBlood Dxzigfpj968/7904/06/2024 8:28 AM EST Udmxt898504/06/2024 8:28 AM VROQiwnegblnlw38.7 ??C (98.1 ??F)04/06/2024 8:28 AM ESTRespiratory Hcqy775504/06/2024 8:28 AM ESTOxygen Fapedzafdp12%04/06/2024 8:28 AM ESTInhaled Oxygen Concentration--Toyfot85.9 kg (107 lb 12.8 oz)04/06/2024 8:28 AM AVMMfobmo612.3 cm (4' 9.99 )03/11/2023 9:09 AM ESTBody Mass Index22.54 03/11/2023 9:09 AM EST Plan of Treatment DateTypeDepartmentCare Team (Latest Contact Info)Oxgpedotvhf73/11/2026 8:30 AM ESTOffice Visit Keira Nicholson [facility] [address] [place] [address] Jackie Adkins PA [address] [place] [address] Health MaintenanceDue DateLast DoneCommentsDepression Vjlpdqgjy29/28/1971Tobacco Vynwazutr51/28/1971DTaP,Tdap and Td Vaccines (1 - Tdap)1977Zoster (Shingles) Vaccine (1 of 2)2008Fall Risk Juvonfjqh98/28/2024COVID-19 Vaccine ( season)509/, 12/25/2022, 12/03/2021, Additional history existsInfluenza Nrdbdhh05/, 12/25/2022, 10/08/2021, Additional history existsAdult BMI Qhwufaupn71/12/2024RSV ( or age 60+ yrs) (1 - 1-dose 75+ series)4Pap SmearDiscontinued 03/13/2022, 03/13/2022, 04/26/2020, Additional history exists Medical Devices Not on file Procedures Procedure NamePriorityDate/TimeAssociated DiagnosisCommentsHIGH RISK HPV W/ANA Qeyyher6103/13/2022 2:39 AM EST Encounter for screening for malignant neoplasm of cervix from Last 3 Months or Most Recently Relevant to Health Maintenance Results * High risk HPV w/ana (03/13/2022 2:39 AM EST)ComponentValueRef RangeTest MethodAnalysis TimePerformed AtPathologist SignatureHpv specimen typeThinPrep 03/14/2022 2:40 AM ESTFA[facility] WELLNESS CENTERHpv 16NegativeNegative^Negative 03/14/2022 2:23 PM [facility] 18Negative Negative^Tijecdmj17/19/2023 2:23 PM [facility] LABOther high risk hpvNegativeNegative^Nsvozrtu19/19/2023 2:23 PM [facility] LABComment: HPV types 31,33,35,39,45,52,56,58,59,66 and 68 DNA were undetectable. Specimen (Source)Anatomical Location / LateralityCollection Method / Volume Collection TimeReceived LdqvCZAOL79/18/2023 2:39 AM EST03/14/2022 2:40 AM EST Narrative Authorizing ProviderResult TypeResult StatusCourtfredrick Adkins [facility] BLOOD ORDERABLESFinal ResultPerforming OrganizationAddressCity/State/ZIP CodePhone Number [facility] [address] [facility] [place] [address] [facility] [address], [address] [place] [address] from Last 3 Months or Most Recently Relevant to Health Maintenance Insurance Care Teams Team MemberRelationshipSpecialtyStart DateEnd Date Edward Feldman MD [facility]07/09/16
--- NOTE | 2025-01-26 10:08 | MM_ITS ---
Patient Name: NIKOS GARCIA MR#: [id number] : 1960 Exam Date: 01/26/2025 Ordering Doctor: NON-STAFF PHYSICIAN RADIOLOGY REPORT PROCEDURE: MM TOMOSYNTHESIS SCREENING BI COMPARISON: MM TOMOSYNTHESIS SCREENING BI, 01/09/2024. MM DIAGNOSTIC MAMMO UNILAT LT, 01/24/2023. MM TOMOSYNTHESIS SCREENING BI, 01/06/2023. MG MAMM SCREEN 3D NICHOLAS CAD, 11/23/2021. INDICATIONS: Screening Calculator Name NCI Breast Cancer Risk Assessment Tool 5 Year Breast Cancer Risk 1.50% Lifetime Breast Cancer Risk 5.40% Personal Breast Cancer No Personal Ovarian Cancer No Treatments None Family Cancers None LOCATION: [facility] BREAST COMPOSITION: The breasts are heterogeneously dense, which may obscure small masses. FINDINGS: RIGHT BREAST: No significant suspicious finding. Benign-appearing calcifications are present. Similar focal asymmetries are noted. LEFT BREAST: No significant suspicious finding. Benign-appearing calcifications are present. Similar focal asymmetries are noted. DIAGNOSTIC CATEGORY 2--BENIGN FINDING. NO CHANGE FROM COMPARISON. RECOMMENDATIONS: ROUTINE MAMMOGRAM AND CLINICAL EVALUATION IN 12 MONTHS. Dictated by: Kenn Ramos MD on 01/26/2025 at 15:14 Approved by: Kenn Ramos MD on 01/26/2025 at 15:25
--- OUTSIDE RECORDS SUMMARY | 2025-01-26 10:20 | XMS_ITS | CCD ---
Author Organization [facility] CliniSynm Care Team Providers Care Occupational Therapist Name Role Phone DR EDWARD OLEARY Admitting Unavailable ANIRUDH, DR EDWARD Alvarez Attending Unavailable ANIRUDH, DR EDWARD Alvarez Primary Care Unavailable BUNN, DR ISIDRA Daly Consulting Unavailable NADERER, DR EDWARD Alvarez Consulting Unavailable ANIRUDH, DR EDWARD Alvarez Admitting Unavailable ANIRUDH, DR EDWARD Alvarez Attending Unavailable ANIRUDH, DR EDWARD Alvarez Primary Care Unavailable ANIRUDH, DR EDWARD Alvarez Consulting Unavailable KIM Perea-Cinthia Caraballo Attending Provider Rashmi Perea Unavailable Rashmi Perea Admitting Unavailable Rashmi Perea Attending Unavailable NO FAMILY, PHYSICIAN Primary Care Unavailable Mily Martinez Unavailable Edward Oleary MD Unavailable Edward Oleary MD Primary Care Provider Edward Oleary MD Primary Care Provider JACKIE MICHAEL Attending Unavailable EDWARD OLEARY Referring Unavailable EDWARD OLEARY Primary Care Unavailable EDWARD OLEARY Attending Unavailable NESS OGDEN Attending Unavailable EDWARD OLEARY Attending Unavailable Edward Oleary MD Primary Care Provider Edward Oleary MD Attending Provider Edward Oleary MD Unavailable Edward Oleary MD Primary Care Provider Allergies Allergy ClassificationReported Allergen(s)Allergy TypeDate of OnsetReaction(s) Facility (2 sources)Penicillins; Translations: [PENICILLINS]Drug allergy (disorder) 29-46-8917Lei [facility] Repository (1 source)Sulfonamides (Antibiotic)Drug allergy (disorder)42-20-7324Phz [facility] Repository (6 sources)Penicillin GDrug Zryqtpp08-00-3127ct doens't rememberPremier Health [facility] (5 sources)Sulf-10Drug allergypt doesn't rememberStarr Unified Inbox Other (8 sources)PenicillinsDrug Hkyeflsltlp71-76-6899Kfjep, Unknown[facility] (8 sources)Sulfamethoxazole / TrimethoprimDrug Tyydore99-63-1595MigralxTWYD [facility] (10 sources)Sulfonamides (Antibiotic)Drug Ppkpcbebvkl96-95-0016Ucfte, Unknown [facility] (2 sources)PenicillinsPropensity to adverse reactions to zgjd53-55-7479Dttep [facility] (2 sources)Sulfonamides (Antibiotic); Translations: [SULFA (SULFONAMIDE ANTIBIOTICS)]Propensity to adverse reactions to drug (disorder)45-54-1320yl doesn't rememberPro[facility] Repository Medications Current Medications MedicationDrug Class(es)DatesSig (Normalized)Sig (Original)acetaminophen 500 mg oral tablet (9 sources)take 1 tablet by mouth every six hours as neededacetaminophen (Tylenol) 500 MG tablet Take 500 mg by mouth every 6 (six) hours if needed ActiveAllergy (5 sources)Allergy Activecelecoxib 200 mg oral capsule (17 sources)Nonsteroidal Anti-inflammatory DrugStart: 67-03-6984vudn 1 capsule by mouth twice dailyCelecoxib 200 mg capsule Active 200 MG PO Twice daily November 11, 2024 1:52pm Complies with drug therapyStart: 10-29-3454enwa 1 capsule by mouth in the morningcelecoxib (CeleBREX) 200 MG capsule Indications: Arthritis Take 1 capsule (200 mg) by mouth in the morning and 1 capsule (200 mg) before bedtime. 60 capsule 5 02/09/2024 ActiveStart: 09-25-2023 End: 58-52-3354oyog 1 capsule by mouth in the morningcelecoxib (CeleBREX) 200 MG capsule Indications: Arthritis Take 1 capsule (200 mg) by mouth in the morning and 1 capsule (200 mg) before bedtime. 60 capsule 3 09/25/2023 02/09/2024 Discontinued (Reorder)Start: 06-25-2023 End: 53-95-8075sjwf 1 capsule by mouth once dailyCelecoxib 200 mg capsule Discontinued 200 MG PO Daily June 25, 2023 12:00am November 11, 2024 1:55pm CeleBREX Activecephalexin 500 mg oral capsule (1 source)Cephalosporin AntibacterialStart: 96-30-8176uwjl 1 capsule by mouth every eight hoursCephalexin 500 MG 1 capsule Orally tid for 10 day(s) Sep, Activedoxycycline monohydrate 100 mg oral capsule (3 sources)Tetracycline-class DrugStart: 66-77-4020jcdc 1 capsule by mouth every twelve hoursDoxycycline Monohydrate 100 MG 1 capsule Orally every 12 hrs for 7 days Mar, Activefluticasone propionate 0.05 mg/actuat metered dose nasal spray (1 source)CorticosteroidStart: 75-40-4112njos 2 spray(s) nasal route once daily Fluticasone Propionate 50 MCG/ACT 2 sprays Nasally Once a day for 14 day(s) Sep, Activelinaclotide 0.29 mg oral capsule (4 sources)Guanylate Cyclase-C AgonistStart: 96-08-9819naak 1 capsule by mouth once daily in the morningLinaclotide (Linzess) 290 mcg capsule Active 290 MCG PO Every morning November 11, 2024 12:00am Complies with drug therapyStart: 88-06-5832gpwe 1 capsule by mouth before mealtimelinaCLOtide (Linzess) 290 MCG capsule Indications: Irritable bowel syndrome with constipation Take 1 capsule (290 mcg) by mouth in the morning. Take before meals. Do not crush or chew.. 30 capsule 3 02/09/2024 ActiveStart: 77-91-7798cajl 1 capsule by mouth before mealtimelinaCLOtide (Linzess) 290 MCG capsule Indications: Irritable bowel syndrome with constipation Take 1 capsule (290 mcg) by mouth in the morning. Take before meals. Do not crush or chew.. 30 capsule 3 02/09/2024 Activetake 1 capsule by mouth in the morninglinaCLOtide (LINZESS) 290 mcg capsule Take 1 capsule (290 mcg total) by mouth in the morning. ActiveMultiple Vitamins- Minerals (multivitamin with minerals) tablet (7 sources)take 1 tablet by mouth once dailyMultiple Vitamins-Minerals (multivitamin with minerals) tablet Take 1 tablet by mouth Daily Activemultivit- min/ferrous fumarate (MULTI VITAMIN ORAL) (2 sources)multivit-min/ferrous fumarate (MULTI VITAMIN ORAL) Take by mouth. ActiveMultivitamin preparation (5 sources)take 1 tablet by mouth once dailyMultivitamin - 1 tablet Orally Once a day ActiveMultivitamin ActiveMultivitamin tablet (1 source)Start: 72-76-5492lxxc 1 tablet by mouth once dailyMultivitamin tablet Active 1 TAB PO Daily June 25, 2023 12:00am Complies with drug therapy phenazopyridine hydrochloride 200 mg oral tablet (3 sources)Start: 10-86-5732jytz 1 tablet by mouth every eight hoursPyridium 200 MG 1 tablet after meals Orally Three times a day for 2 day(s) Mar, ActivepredniSONE 20 mg oral tablet (1 source)Start: 49-85-7028qfzl 1 tablet by mouth every twelve hourspredniSONE 20 MG 1 tablet Orally bid for 5 day(s) Sep, Active Completed/Discontinued Medications MedicationDrug Class(es)DatesSig (Normalized)Sig (Original)cetirizine hydrochloride 10 mg oral tablet (1 source)Histamine-1 Receptor AntagonistStart: 06-25-2023 End: 61-57-9465atys 1 tablet by mouth once dailyCetirizine 10 mg tablet Discontinued 10 MG PO Daily June 25, 2023 12:00am November 11, 2024 1:52pm12 hr cetirizine hydrochloride 5 mg / pseudoephedrine hydrochloride 120 mg extended release oral tablet (1 source)alpha-Adrenergic Agonist, Histamine-1 Receptor AntagonistStart: 06-25-2023 End: 44-38-6746cobr 1 tablet by mouth every twelve hours as needed for congestionCetirizine-Pseudoephedrine 5-120 mg tablet extended release 12 hr Discontinued 1 TAB PO Every 12 hours as needed for congestion 30 June 25, 2023 12:00am November 11, 2024 1:53pmclarithromycin 500 mg oral tablet (3 sources)Macrolide AntimicrobialStart: 33-17-8041eltr 1 tablet by mouth every twelve hoursClarithromycin 500 MG 1 tablet Orally every 12 hrs for 7 days Feb, Not-Takingdextromethorphan hydrobromide 1.5 mg/ml / pyrilamine maleate 1.5 mg/ml oral solution (3 sources)Uncompetitive M-lvjdrl-A-aspartate Receptor Antagonist, Sigma-1 AgonistStart: 70-62-5430Yboxza DM 7.5-7.5 MG/5ML 10 ml Orally every 6-8 hours as needed for 8 days Feb, Not-Takinghydrocortisone 10 mg/ml / neomycin 3.5 mg/ml / polymyxin b 86241 unt/ml otic suspension (2 sources)Aminoglycoside Antibacterial, Polymyxin-class Antibacterial, CorticosteroidStart: 22-87-8108Jpahyary-Polymyxin-HC 3.5-06096-1 3 drops right ear Three times a day for 7 days June, Not-TakingmethylPREDNISolone 4 mg oral tablet (8 sources)CorticosteroidStart: 18-07-2553mtczkcWQDLMUIeswmd 4 MG as directed Orally Once a day for 6 days Feb, Not-TakingStart: 52-96-7419Fjxa-Medrol 80 mg Jul, 80 mg Problems Active Problems Problem ClassificationProblemDateDocumented DateEpisodic/Chronic Administrative/social admission (3 sources)Patient encounter status; Translations: [Other specified counseling] Onset: 07-15-2016 Resolved: 922644-51-0245NiuobxlvJozepj of other female genital organs (13 sources)Carcinoma in situ of vulva; Translations: [Carcinoma in situ of vulva]Onset: 046130-73-4997AmgpxreClrqfpn obstructive pulmonary disease and bronchiectasis (1 source)Bronchitis, not specified as acute or chronicEpisodicOsteoarthritis (15 sources)Arthritis; Translations: [Unspecified osteoarthritis, unspecified site]Onset: 376123-79-7626CiktqehBwofu ear and sense organ disorders (2 sources)Hearing loss of right ear; Translations: [Other specified hearing loss, right ear]56-57-2112HdnwpvbRbloa ear and sense organ disorders (9 sources)Sensorineural hearing loss, bilateral; Translations: [Sensorineural hearing loss, bilateral]Onset: 315015-88-2548FscxeyxOryti ear and sense organ disorders (1 source)Impacted cerumen, bilateralEpisodicOther ear and sense organ disorders (1 source)Unspecified acute noninfective otitis externa, left earEpisodicOther ear and sense organ disorders (2 sources)Pain of ear structure; Translations: [Otalgia, right ear]01-13-2024 EpisodicOther ear and sense organ disorders (2 sources)Impacted cerumen of bilateral ears; Translations: [Impacted cerumen, bilateral]83-57-3417UobtkelbRyrmf gastrointestinal disorders (8 sources)Irritable bowel syndrome characterized by constipation; Translations: [Irritable bowel syndrome with constipation]Onset: hronic Other non-epithelial cancer of skin (1 source)Malignant neoplasm of skin; Translations: [Unspecified malignant neoplasm of skin, unspecified]25-09-5790UoeyansbFcwtw screening for suspected conditions (not mental disorders or infectious disease) (7 sources)Encounter for screening mammogram for malignant neoplasm of breast; Translations: [Patient encounter status]Onset: 05-27-9025KcjahvgqUsctv upper respiratory disease (1 source)Allergic rhinitis; Translations: [Allergic rhinitis, unspecified] 69-75-3720CgnirviRlpge upper respiratory infections (2 sources)Acute pharyngitis, unspecified; Translations: [Acute sinusitis, unspecified]EpisodicPneumonia (except that caused by tuberculosis or sexually transmitted disease) (1 source)Pneumonia, unspecified organismEpisodicUrinary tract infections (1 source)Acute cystitis with hematuriaEpisodic Past or Other Problems Problem ClassificationProblemDateDocumented DateEpisodic/ChronicGenitourinary symptoms and ill-defined conditions (8 sources)Dysuria; Translations: [Dysuria]Onset: 17-65-0586FnalohxpCcrbs aftercare (6 sources)Long-term current use of drug therapy; Translations: [Other retirement (current) drug therapy]Onset: 258587-76-1721BntralpcJtltj gastrointestinal disorders (8 sources)Constipation; Translations: [Constipation, unspecified]Onset: 711473-32-0913ZlryfjzkOalrs nervous system disorders (2 sources)Postoperative pain ; Translations: [Other acute postprocedural pain] Onset: 07-15-2016 Resolved: 322225-64-5639LjdrfshmSnmnc non-traumatic joint disorders (6 sources)Hip pain; Translations: [Pain in right hip]Onset: 02-09-2024 93-51-1838RjlezicdIcuxsl media and related conditions (9 sources)Dysfunction of bilateral eustachian tubes; Translations: [Unspecified Eustachian tube disorder, bilateral]Onset: 519078-11-4047MjwslsqnDobwxkom codes; unclassified (2 sources)At risk for infection; Translations: [Other specified personal risk factors, not elsewhere classified]Onset: 07-15-2016 Resolved: 743808-63-1575BstezcdbFwidysxlsjm; intervertebral disc disorders; other back problems (6 sources)Chronic back pain ; Translations: [Chronic lumbosacral pain]Onset: 937590-82-8707Gswktzok Results Test NameValueInterpretationReference RangeFacilityUS Breast - lefton 01-27-2024 [place] [address] Ultrasound Report Signed Patient: ORCIO STANFORD MR#: [id number] : 1960 Acct:[id number] Age/Sex: 63 / F ADM Date: 01/27/24 Loc: US Attending Dr: Eamon Sky M.D. Ordering Physician: Eamon Sky M.D. Date of Service: 01/27/24 Procedure(s): US breast LT complete Accession Number(s): [id number] cc: Edward Oleary M.D.; Eamon Sky M.D. Patient Name: ROCIO STANFORD MR#: [id number] : 1960 Exam Date: 01/27/2024 Ordering Doctor: BessStaff Physician RADIOLOGY REPORT PROCEDURE: US BREAST LT COMPLETE COMPARISON: MM TOMOSYNTHESIS SCREENING BI, 01/09/2024. INDICATIONS: Abnormal mammogram on left, R92.8 TECHNIQUE: Breast ultrasound was performed, with evaluation focusing only on specific areas of concern. FINDINGS: DIAGNOSTIC CATEGORY 2--BENIGN FINDING: Identified in the hypodermis is a focal oval area hypoechogenicity, with mildly heterogeneous internal echotexture, this lesion extends nearly to the skin surface on image number 19. No internal vascularity. The lesion measures 6.4 x 5.4 x 6.4 mm, this lesion likely represents an epidermal inclusion cyst or sebaceous cyst. RECOMMENDATIONS: ROUTINE MAMMOGRAM AND CLINICAL EVALUATION IN 12 MONTHS. PLEASE NOTE: A NORMAL ULTRASOUND EXAMINATION DOES NOT EXCLUDE THE POSSIBILITY OF BREAST CANCER. A CLINICALLY SUSPICIOUS PALPABLE LUMP SHOULD BE BIOPSIED. Dictated by: Isidra Culp MD on 01/27/2024 at 09:20 Approved by: Isidra Culp MD on 01/27/2024 at 09:23 Dictated By: Isidra Culp M.D. Signed By: 01/27/24923 DD/ 2 TD/TT: Special Education Director:TBHRadiology, Radiologist, - 01/27/2024 [place] [address] Ultrasound Report Signed Patient: ROCIO STANFORD MR#: [id number] : 1960 Acct:[id number] Age/Sex: 63 / F ADM Date: 01/27/24 Loc: US Attending Dr: BessStaff Physician Daniels Ordering Physician: Eamon Sky M.D. Date of Service: 01/27/24 Procedure(s): US breast LT complete Accession Number(s): [id number] cc: Edward Oleary M.D.; Eamon Sky M.D. Patient Name: ROCIO STANFORD MR#: [id number] : 1960 Exam Date: 01/27/2024 Ordering Doctor: Non-Staff Physician RADIOLOGY REPORT PROCEDURE: US BREAST LT COMPLETE COMPARISON: MM TOMOSYNTHESIS SCREENING BI, 01/09/2024. INDICATIONS: Abnormal mammogram on left, R92.8 TECHNIQUE: Breast ultrasound was performed, with evaluation focusing only on specific areas of concern. FINDINGS: DIAGNOSTIC CATEGORY 2--BENIGN FINDING: Identified in the hypodermis is a focal oval area hypoechogenicity, with mildly heterogeneous internal echotexture, this lesion extends nearly to the skin surface on image number 19. No internal vascularity. The lesion measures 6.4 x 5.4 x 6.4 mm, this lesion likely represents an epidermal inclusion cyst or sebaceous cyst. RECOMMENDATIONS: ROUTINE MAMMOGRAM AND CLINICAL EVALUATION IN 12 MONTHS. PLEASE NOTE: A NORMAL ULTRASOUND EXAMINATION DOES NOT EXCLUDE THE POSSIBILITY OF BREAST CANCER. A CLINICALLY SUSPICIOUS PALPABLE LUMP SHOULD BE BIOPSIED. Dictated by: Isidra Culp MD on 01/27/2024 at 09:20 Approved by: Isidra Culp MD on 01/27/2024 at 09:23 Dictated By: Isidra Culp M.D. Signed By: 01/27/24923 DD/ 2 TD/TT: Special Education Director: DESTIN NguyễnRadiology Study observation (narrative)DESTIN NguyễnUS Breast - leftOrdered By: Radiologist Radiology on 22-26-6394UULY [employer] Work Phone: mm TOMOSYNTHESIS SCREENING BIon [phone] [address] Mammography Report Signed Patient: ROCIO STANFORD MR#: [id number] : 1960 Acct:[id number] Age/Sex: 63 / F ADM Date: 01/09/24 Loc: MAMMO Attending Dr: BessStaff Physician Daniels Ordering Physician: Eamon Sky M.D. Results: Date of Service: 01/09/24 Follow Up: Procedure(s): MM tomosynthesis screening BI Accession Number(s): [id number] cc: Edward Oleary M.D.; Eamon Sky M.D. Patient Name: ROCIO STANFORD MR#: [id number] : 1960 Exam Date: 01/09/2024 Ordering Doctor: Non-Staff Physician RADIOLOGY REPORT PROCEDURE: MM TOMOSYNTHESIS SCREENING BI COMPARISON: US BREAST LT LIMITED, 01/24/2023. MM DIAGNOSTIC MAMMO UNILAT LT, 01/24/2023. MM TOMOSYNTHESIS SCREENING BI, 01/06/2023. MG MAMM SCREEN 3D DELONTE CAD, 11/23/2021. MG MAMM SCREEN 3D DELONTE CAD, 10/20/2020. INDICATIONS: Screening Calculator Name NCI Breast Cancer Risk Assessment Tool 5 Year Breast Cancer Risk 1.50% Lifetime Breast Cancer Risk 5.60% Personal Breast Cancer No Personal Ovarian Cancer No Treatments None Family Cancers None LOCATION: [facility] BREAST COMPOSITION: The breasts are heterogeneously dense,which may obscure small masses. FINDINGS: DIAGNOSTIC CATEGORY 0--INCOMPLETE: NEED ADDITIONAL IMAGING EVALUATION. RIGHT BREAST: No significant suspicious finding. Scattered benign-appearing calcifications are present. No significant change has occurred. LEFT BREAST: Interval increase in size and density of a 7 mm partially circumscribed mass within the posterior lower inner quadrant, which on previous ultrasound evaluation with suggestive of a lymph node. Given the change in size and density additional ultrasound evaluation is recommended. Stable benign-appearing calcifications. RECOMMENDATIONS: ULTRASOUND: LEFT BREAST Active recommendations from prior exams: ROUTINE MAMMOGRAM AND CLINICAL EVALUATION IN [#MONTHS] MONTHS. Due on 01/25/2024. PLEASE NOTE: A NORMAL MAMMOGRAM DOES NOT EXCLUDE THE POSSIBILITY OF BREAST CANCER. A CLINICALLY SUSPICIOUS PALPABLE LUMP SHOULD BE BIOPSIED. Dictated by: Daryn Barahona M.D. on 01/09/2024 at 10:29 Approved by: Daryn Barahona M.D. on 01/09/2024 at 10:37 Dictated By: Daryn Barahona M.D. Signed By: 01/09/24 1038 DD/ 1037 TD/TT: Special Education Director:TBHRadiology, Radiologist, MD - 01/09/2024 [place] [address] Mammography Report Signed Patient: ROCIO STANFORD MR#: [id number] : 1960 Acct:[id number] Age/Sex: 63 / F ADM Date: 01/09/24 Loc: MAMMO Attending Dr: Eamon Sky M.D. Ordering Physician: Eamon Sky M.D. Results: Date of Service: 01/09/24 Follow Up: Procedure(s): MM tomosynthesis screening BI Accession Number(s): [id number] cc: Edward Oleary M.D.; Eamon Sky M.D. Patient Name: ROCIO STANFORD MR#: [id number] : 1960 Exam Date: 01/09/2024 Ordering Doctor: Non-Staff Physician RADIOLOGY REPORT PROCEDURE: MM TOMOSYNTHESIS SCREENING BI COMPARISON: US BREAST LT LIMITED, 01/24/2023. MM DIAGNOSTIC MAMMO UNILAT LT, 01/24/2023. MM TOMOSYNTHESIS SCREENING BI, 01/06/2023. MG MAMM SCREEN 3D DELONTE CAD, 11/23/2021. MG MAMM SCREEN 3D DELONTE CAD, 10/20/2020. INDICATIONS: Screening Calculator Name NCI Breast Cancer Risk Assessment Tool 5 Year Breast Cancer Risk 1.50% Lifetime Breast Cancer Risk 5.60% Personal Breast Cancer No Personal Ovarian Cancer No Treatments None Family Cancers None LOCATION: [facility] BREAST COMPOSITION: The breasts are heterogeneously dense,which may obscure small masses. FINDINGS: DIAGNOSTIC CATEGORY 0--INCOMPLETE: NEED ADDITIONAL IMAGING EVALUATION. RIGHT BREAST: No significant suspicious finding. Scattered benign-appearing calcifications are present. No significant change has occurred. LEFT BREAST: Interval increase in size and density of a 7 mm partially circumscribed mass within the posterior lower inner quadrant, which on previous ultrasound evaluation with suggestive of a lymph node. Given the change in size and density additional ultrasound evaluation is recommended. Stable benign-appearing calcifications. RECOMMENDATIONS: ULTRASOUND: LEFT BREAST Active recommendations from prior exams: ROUTINE MAMMOGRAM AND CLINICAL EVALUATION IN [#MONTHS] MONTHS. Due on 01/25/2024. PLEASE NOTE: A NORMAL MAMMOGRAM DOES NOT EXCLUDE THE POSSIBILITY OF BREAST CANCER. A CLINICALLY SUSPICIOUS PALPABLE LUMP SHOULD BE BIOPSIED. Dictated by: Daryn Barahona M.D. on 01/09/2024 at 10:29 Approved by: Daryn Barahona M.D. on 01/09/2024 at 10:37 Dictated By: Daryn Barahona M.D. Signed By: 01/09/24 1038 DD/ 1037 TD/TT: Special Education Director: DESTIN HealthcareRadiology Study observation (narrative)[facility] TOMOSYNTHESIS SCREENING BIOrdered By: Radiologist Radiology on [id number] [employer] Work Phone: Urinalysis - AUTOMATEDon 66-37-4146Deyukkvuvh (U)[employer] Other Bilirubin Ql (U)NegativeStarr Unified Inbox Other Color (U)yellowStarr Unified Inbox Other Glucose Ql (U)[facility] Unified Inbox Other Hemoglobin Ql (U)smallStarr Unified Inbox Other Ketones Ql (U)[facility] Unified Inbox Other Leukocyte esterase Test strip Ql (U)traceStarr Unified Inbox Other Nitrite Ql (U)[facility] Unified Inbox Other pH (U)7.5 [pH]LiveData Other Protein Ql (U)[facility] Unified Inbox Other Specific gravity (U) [Rel density]1.025[facility] Unified Inbox Other Urinalysis Gross ExamabnormalStarr Unified Inbox Other Urobilinogen (U) [Mass/Vol]0.2 mg/dLStarr Unified Inbox Other Urinalysis - DIPSTICKon 54-09-7134Urtillohlm (U)Starr Unified Inbox Other Bilirubin Ql (U)Starr [employer] Inbox Other Color (U)Starr Unified Inbox Other Glucose Ql (U)[employer] Other Ketones Ql (U)[employer] Other Protein Ql (U)[employer]Data Other Specific gravity (U) [Rel density]Starr Unified Inbox Other Urinalysis - DIPSTICKStarr Unified Inbox Other Urine Cultureon 00-72-3733Ruyzzzvj identified Cx Nom (U)Reason for Exam Dysuria Urine No Growth 2 Days PERFORMED BY: [facility] [address] [id number] PATHOLOGIST PARAFFIN MACHINE OPERATOR YARY SOLER M.D.[facility] Greene MemorialComment on above: Performed By: #### CUU #### [facility] [address] [id number] USABacteria identified Cx Nom (U)LiveData Other quick Strepon 03-24-2022S. pyogenes Org specific cx Ql (Throat)NegativeStarr Unified Inbox Other quick StrepTouchLocal Unified Inbox Other CBC AUTO DIFFon 12-98-8140EKUB #0.1 103/ulNormal 0.0-0.1Reg[facility] Medical CenterComment on above:Performed By: #### CBC #### [facility] [address] [address] [address] Oliva SullivanBasophils/100 WBC (Bld)1.0 %Normal0.2-2.0[facility] Comment on above:Performed By: #### CBC #### [facility] [address] [address] [address] Oliva Ware #0.1 103/ulNormal0.0-0.7The [facility] CenterComment on above: Performed By: #### CBC #### [facility] [address] [address] [address] Oliva Fosterosinophils/100 WBC (Bld)1.6 %Normal0.9-7.0[facility] Comment on above:Performed By: #### CBC #### [facility] [address] [place] [address] Dr. Oliva Fosterrythrocyte distribution width (RBC) [Ratio]12.6 %Pitcrl29.0-15.0 [facility] Medical CenterComment on above:Performed By: #### CBC #### [facility] [address] [place] [address] Dr. Oliva SullivanHematocrit (Bld) [Volume fraction]44.6 %Cbifyb84.0-48.0The [facility] CenterComment on above:Performed By: #### CBC #### [facility] [address] [place] [address] Dr. Oliva SullivanHemoglobin (Bld) [Mass/Vol]14.6 g/eGOvrtxu06.0-16.0The [facility] HospitalComment on above:Performed By: #### CBC #### [facility] [address] [place] [address] Dr. Oliva SullivanIG #0.01 10e3/ulNormal0.00-0.03The [facility] CenterComment on above:Performed By: #### CBC #### [facility] [address] [place] [address] Dr. Oliva SullivanIG %0.2 %Normal0.0-0.5The [facility] CenterComment on above: Performed By: #### CBC #### [facility] [address] [place] [address] Dr. Oliva Farris #2.3 103/ulNormal1.2-3.8The [facility] CenterComment on above:Performed By: #### CBC #### [facility] [address] [place] [address] Dr. Oliva Skinnermphocytes/100 WBC (Bld)37.3 %Axrbtj04.5-60.0The [facility] CenterComment on above:Performed By: #### CBC #### [facility] [address] [place] [address] Dr. Oliva SullivanMANUAL DIFF REQNONormalThe [facility] Medical CenterComment on above: Performed By: #### CBC #### [facility] [address] [place] [address] Dr. Oliva Cha (RBC) [Entitic mass]31.5 jtDcuble47.7-34.0The [facility] CenterComment on above:Performed By: #### CBC #### [facility] [address] [address] [address] Oliva JamesHC (RBC) [Mass/Vol]32.7 g/zUJozywu02.9-35.2The [facility] Va Medical CenterComment on above:Performed By: #### CBC #### [facility] [address] [address] [address] Oliva JamesV (RBC) [Entitic vol]96.1 vTDebjhu01.0-99.0The [facility] Vegas HospitalComment on above:Performed By: #### CBC #### [facility] [address] [place] [address] Dr. Oliva Boyd #0.6 103/ulNormal0.3-0.8The [facility] Va Medical CenterComment on above:Performed By: #### CBC #### [facility] [address] [place] [address] Dr. Oliva Ahnocytes/100 WBC (Bld)9.7 %Normal1.7-12.0The [facility] Comment on above:Performed By: #### CBC #### [facility] [address] [address] [address] Oliva Burnette #3.1 103/ulNormal1.4-6.5The [facility] Va Medical CenterComment on above:Performed By: #### CBC #### [facility] [address] [place] [address] Dr. Oliva Sheppardutrophils/100 WBC (Bld)50.2 %Sozetb83.0-75.0The [facility] Medical CenterComment on above:Performed By: #### CBC #### [facility] [address] [address] [address] Oliva Goddardlet mean volume (Bld) [Entitic vol]10.1 fLNormal9.5-13.5The [facility] Medical CenterComment on above:Performed By: #### CBC #### [facility] [address] [place] [address] Dr. Oliva SullivanPLT328 103/ttZgirbj019-650Dbc [facility] Medical CenterComment on above: Performed By: #### CBC #### [facility] [address] [address] [address] Oliva SullivanRBC4.64 106/ulNormal4.20-5.40The [facility] on above:Performed By: #### CBC #### [facility] [address] [address] [address] Oliva SullivanWBC6.2 103/ulNormal4.0-11.0The [facility] on above: Performed By: #### CBC #### [facility] [address] [address] [address] Oliva SullivanGLYCOHEMOGLOBIN A1Con 56-61-7072VMQ RECOMMENDATIONSEE [facility] on above:Result Comment: ADA RECOMMENDED LIMIT 4.0 - 6.0 ADA THERAPEUTIC TARGET < 7.0 ACTION SUGGESTED > 7.0Performed By: #### A1C #### [facility] [address] [place] [address] Dr. Oliva SullivanGlucose [Mass/Vol]120 mg/dLNoFairfield Medical Center on above:Performed By: #### A1C #### [facility] [address] [place] [address] Dr. Oliva SullivanHbA1c (Bld) [Mass fraction]5.8 %Normal4.5-6.2[facility] on above:Performed By: #### A1C #### [facility] [address] [place] [address] Dr. Oliva SullivanLIPID PROFILEon 68-96-5688OBSC-HDL RATIO NORMSEE [facility] on above:Result Comment: 3.3 - 4.4 LOW RISK 4.4 - 7.1 AVERAGE RISK 7.1 - 11.0 MODERATE RISK >11.0 HIGH RISKPerformed By: #### TSH, LIPID, LIVER, BMP #### [facility] [address] [place] [address] Dr. Oliva SullivanCholesterol [Mass/Vol]202 mg/dLCritically high<=200The Kelsey HospitalComment on above:Performed By: #### TSH, LIPID, LIVER, BMP #### [facility] [address] [address] [address] Oliva Shaikhesterol in HDL [Mass/Vol]57 mg/mQUsguqz93-16WlbRegional Medical CenterComhenry ford [facility] on above:Performed By: #### TSH, LIPID, LIVER, BMP #### [facility] [address] [address] [address] Oliva Shaikhesterol in LDL [Mass/Vol]127.2 mg/dLNoSelect Medical Specialty Hospital - Cincinnati NorthComment on above:Performed By: #### TSH, LIPID, LIVER, BMP #### [facility] [address] [address] [address] Oliva Enciso.total/Cholesterol in HDL [Mass ratio]3.5 {ratio} NormalRegional Medical CenterComment on above:Performed By: #### TSH, LIPID, LIVER, BMP #### [facility] [address] [address] [address] Oliva Scherer NORMAL> or = 60 mg/dl - LOW CARDIOVASCULAR RISK <40 mg/dl - HIGH CARDIOVASCULAR RISKNoSelect Medical Specialty Hospital - [facility] NorthComment on above:Performed By: #### TSH, LIPID, LIVER, BMP #### [facility] [address] [address] [address] Oliva Murillo CALC NORMALSEE BELOWNoSelect Medical Specialty Hospital - Cincinnati NorthComment on above:Result Comment: <100 mg/dl OPTIMAL 100 - 129 mg/dl NEAR OR ABOVE OPTIMAL 130 - 159 mg/dl BORDERLINE HIGH 160 - 189 mg/dl HIGH >190 mg/dl VERY HIGH Performed By: #### TSH, LIPID, LIVER, BMP #### [facility] [address] [address] [address] Oliva SullivanTriglyceride [Mass/Vol]89 mg/dLNormal<=150[facility] Comment on above:Performed By: #### TSH, LIPID, LIVER, BMP #### [facility] [address] [address] [address] Oliva HernandezLDL CALC17.8 mg/dLNoMercy Health [facility] Medical CenterComment on above: Performed By: #### TSH, LIPID, LIVER, BMP #### [facility] [address] [place] [address] Dr. Oliva OLSENon 12-18-3625Vabtvuu [Mass/Vol]4.2 g/dLNormal3.4-5.0 The [facility] Va Medical CenterComment on above:Performed By: #### TSH, LIPID, LIVER, BMP #### [facility] [address] [place] [address] Dr. Oliva SullivanAlbumin/Globulin [Mass ratio]1.1 {ratio}NormalThe [facility] Jewish Hospitalment on above:Performed By: #### TSH, LIPID, LIVER, BMP #### [facility] [address] [place] [address] Dr. Oliva Tidwell [Catalytic activity/Vol]97 U/PPftljg66-628Fzv [facility] Medical CenterComment on above:Performed By: #### TSH, LIPID, LIVER, BMP #### [facility] [address] [place] [address] Dr. Oliva Stinson [Catalytic activity/Vol]42 U/ZFgfzlt49-98Lgo [facility] CenterComment on above:Performed By: #### TSH, LIPID, LIVER, BMP #### [facility] [address] [place] [address] Dr. Oliva Torres [Catalytic activity/Vol]27 U/AKuxqvo18-31Huq [facility] Hospitalment on above:Performed By: #### TSH, LIPID, LIVER, BMP #### [facility] [address] [place] [address] Dr. Oliva Dalal, CONJUGATED0.1 mg/dLNormal0.0-0.2The [facility] Comment on above:Performed By: #### TSH, LIPID, LIVER, BMP #### [facility] [address] [place] [address] Dr. Oliva SullivanBilirubin [Mass/Vol]0.4 mg/dLNormal0.2-1.0The [facility] Comment on above:Performed By: #### TSH, LIPID, LIVER, BMP #### [facility] [address] [address] [address] Oliva SullivanGlobulin (S) [Mass/Vol]3.7 g/dLNormalThe [facility] Medical CenterComment on above:Performed By: #### TSH, LIPID, LIVER, BMP #### [facility] [address] [place] [address] Dr. Oliva SullivanProtein [Mass/Vol]7.9 g/dLNormal6.4-8.2The [facility] Comment on above:Performed By: #### TSH, LIPID, LIVER, BMP #### [facility] [address] [address] [address] Oliva SullivanPROF CHEM 8 (BAS METB)on 23-17-9854Xdujd gap [Moles/Vol]11.5 mmol/LNormalThe [facility] Medical CenterComment on above:Performed By: #### TSH, LIPID, LIVER, BMP #### [facility] [address] [place] [address] Dr. Oliva SullivanCalcium [Mass/Vol]9.4 mg/dLNormal8.5-10.1The [facility] Comment on above:Performed By: #### TSH, LIPID, LIVER, BMP #### [facility] [address] [place] [address] Dr. Oliva SullivanChloride [Moles/Vol]99 mmol/QAkqjku67-597Omi [facility] Comment on above:Performed By: #### TSH, LIPID, LIVER, BMP #### [facility] [address] [place] [address] Dr. Oliva SullivanCO2 [Moles/Vol]28.3 mmol/PHfwrtl98.0-32.0The [facility] Comment on above:Performed By: #### TSH, LIPID, LIVER, BMP #### [facility] [address] [place] [address] Dr. Oliva SullivanCreatinine [Mass/Vol]0.78 mg/dLNormal0.55-1.02The [facility] Medical CenterComment on above:Performed By: #### TSH, LIPID, LIVER, BMP #### [facility] [address] [address] [address] Oliva FosterGFR-AF KYRGYZ>60Normal>=60The [facility] Va Medical CenterComment on above:Performed By: #### TSH, LIPID, LIVER, BMP #### [facility] [address] [address] [address] Oliva FosterGFR-NON AF KYRGYZ>60Normal>=60The [facility] Medical CenterComment on above:Performed By: #### TSH, LIPID, LIVER, BMP #### [facility] [address] [address] [address] Oliva SullivanGlucose [Mass/Vol]86 mg/tXKqwwhg18-109Aof [facility] Comment on above:Performed By: #### TSH, LIPID, LIVER, BMP #### [facility] [address] [address] [address] Oliva SullivanPotassium [Moles/Vol]4.8 mmol/LNormal3.5-5.1The [facility] Comment on above:Performed By: #### TSH, LIPID, LIVER, BMP #### [facility] [address] [address] [address] Oliva SullivanSodium [Moles/Vol]134 mmol/LCritically xne324-530Uaa [facility] CenterComment on above:Performed By: #### TSH, LIPID, LIVER, BMP #### [facility] [address] [address] [address] Oliva SullivanUrea nitrogen [Mass/Vol]12.0 mg/dLNormal7.0-18.0The [facility] Medical CenterComment on above:Performed By: #### TSH, LIPID, LIVER, BMP #### [facility] [address] [address] [address] Oliva Manuel nitrogen/Creatinine [Mass ratio]15.4 mg/mgNormalThe [facility] Medical CenterComment on above:Performed By: #### TSH, LIPID, LIVER, BMP #### [facility] [address] [address] [address] Oliva Mcgraw 57-27-4508PES6.314 uIU/mLNormal0.358-3.740Regional Medical CenterComment on above:Performed By: #### TSH, LIPID, LIVER, BMP #### [facility] [address] [place], [place] [address] Dr. Oliva SullivanMG MAMM SCREEN 3D DELONTE CADon 38-94-5487AK MAMM SCREEN 3D DELONTE CAD Patient: ROCIO STANFORD Exam Date: 11/23/2021 : 1960 Gender:F Ordering : DR EDWARD OLEARY . Admission #: [id number] Family : JACKIE MICHAEL Order #: [id number] CLICK HERE TO VIEW EXAM RADIOLOGY REPORT [...] Treatments None Family Cancers None LOCATION: [facility] BREAST COMPOSITION: Heterogeneously dense,which may obscure small [...] by: Isidra Culp MD on 11/23/2021 at 12:54[facility] Vital Signs Date TimeVital SignValuePerforming EcrgvpjudLmsqbfud06-48-0173 09:-0400Body kihuhf805.46 cmEdward Oleary MD Work Phone: [facility]09-19-2025 09:22-0400 Body mass index (BMI) [Ratio]31 kg/m2Edward Oleary MD Work Phone: [facility]09-19-2025 09:22-0400 Body azpdofyuzvu74.5 [degF]Edward Oleary MD Work Phone: [facility]09-19-2025 09:22-0400 Body kekkrg46.08 kgEdward Oleary MD Work Phone: [facility]09-19-2025 09:22-0400 Diastolic blood mm[Hg]Edward Oleary MD Work Phone: [facility]09-19-2025 09:22-0400 Heart rate84 /minEdward Oleary MD Work Phone: [phone]09-19-2025 09:22-0400 Respiratory rate22 /minEdward Oleary MD Work Phone: [phone]09-19-2025 09:22-0400 SaO2% (BldA) [Mass fraction]97 %Edward Oleary MD Work Phone: [facility]09-19-2025 09:22-0400 Systolic blood avfkptwt019 mm[Hg]Edward Oleary MD Work Phone: [facility]02-11-2025 08:28-0500 Body mass index (BMI) [Ratio]22.54 kg/v1BtqrcixjJackie Michael PA Work Phone: [facility] [employer] Odrari02-67-2375 08:28-0500Body .1 [degF]Jackie Michael PA Work Phone: [facility] [employer] Zbzchy67-01-2115 08:28-0500Body qhhsqa23.9 kgCodeni Michael PA Work Phone: [facility] SystemRhbxxk35-94-8708 08:28-0500Diastolic blood tdihbwcz28 mm[Hg]Jackie MASSEY Work Phone: [facility] [place] Nyynxn50-51-4366 08:28-0500Heart rate 70 /minCodeni Michael PA Work Phone: [facility]02-11-2025 08:28-0500 Respiratory rate16 /minCodeni MASSEY Work Phone: [facility]02-11-2025 08:28-2356TlM1% (BldA) [Mass fraction]98 %Jackie Jed PA Work Phone: [facility]02-11-2025 08:28-0500Systolic blood yqrpnfzd176 mm[Hg]Jackie MASSEY Work Phone: [facility]12-16-2024 11:00-0500Body iyyfqd751.3 cmEdward Oleary MD Work Phone: [facility] WestEiuexcqibh69-12-4271 11:00-0500Body mass index (BMI) [Ratio]22.57 kg/m2Edward Oleary MD Work Phone: [facility] WestXzcwpomlbi97-74-7010 11:00-0500Body temperature 97.81 [degF]Edward Oleary MD Work Phone: [facility] WestXitzzkpiye81-48-4070 11:00-0500Body dozcgq41.99 kgEdward Oleary MD Work Phone: [facility] WestTtbyvujiek25-91-3422 11:00-0500Diastolic blood atyjhltq88 mm[Hg]Edward Oleary MD Work Phone: [facility] WestDtzkfchyuo93-39-2547 11:00-0500Heart rate89 /min Edward Oleary MD Work Phone: [address] [address]Cjcfriecmn52-95-2447 11:00-0500Respiratory rate20 /minEdward Oleary MD Work Phone: [address] [address]Uakgzffdfe81-91-8910 11:00-9569JrT2% (BldA) [Mass fraction]95 %Edward Oleary MD Work Phone: [address] [address]Jaoxfpttzw82-95-9964 11:00-0500Systolic blood hicisuxs747 mm[Hg]Edward Oleary MD Work Phone: noLee[facility] HospitalAelwqxxqsb46-33-4990 09:08-0500Body mvdnoe565.3 cmNess Ogden MD Work Phone: [facility] WestNfkltexulh78-97-3895 09:08-0500Body mass index (BMI) [Ratio]22.57 kg/i1KnzwfoNess Ogden MD Work Phone: noLee's Summit HospitalZragdzqkgt59-51-5909 09:08-0500Body .99 kgNess Ogden MD Work Phone: [facility] WestDeyngprewn38-92-5884 09:08-0500Diastolic blood uzhhswqp98 mm[Hg]Ness Ogden MD Work Phone: noLee[facility] Summit HospitalWihukmdfax71-22-8846 09:08-0500Systolic blood tieboweg197 mm[Hg]Ness Ogden MD Work Phone: [facility] WestSwlrwjrznu76-28-6768 09:20-0400Body artkiy663.32 cmPjenn Martinez Other [employer] Other 08-29-2023 09:20-0400Body mass index (BMI) [Ratio] 22.69 kg/m4HzhyteMily Martinez Other [employer] Other 08-29-2023 09:20-0400Body isapeupzmqf93.4 [degF]Mily Martinez Other [employer] Other 08-29-2023 09:20-0400Body .26 kgMaurijhonathan Michelle Other [employer] Other 08-29-2023 09:20-0400Diastolic blood gsqkuyvt90 mm[Hg] Mily Martinez Other [employer] Other 08-29-2023 09:20-0400Respiratory rate18 /minPamela Michelle Other [employer] Other 08-29-2023 09:20-8613EgW4% (BldA) [Mass fraction]99 % Mily Michelle Other [employer] Other 08-29-2023 09:20-0400Systolic blood qpaapzsw609 mm[Hg] Mily Michelle Other [employer] Other 05-14-2023 11:50-0400Body egaxdr682.32 cmPamela Michelle Other [employer] Other 05-14-2023 11:50-0400Body mass index (BMI) [Ratio] 22.95 kg/e6Nevnda Michelle Other [employer] Other 05-14-2023 11:50-0400Body ivbtlrnhukc31.1 [degF]Mily Valenzuelamond Other [employer] Other 05-14-2023 11:50-0400Body ocbilo56.81 kgPabety Martinez Other [employer] Other 05-14-2023 11:50-0400Diastolic blood hkvpofyk44 mm[Hg] Mily Valenzuelamond Other [employer] Other 05-14-2023 11:50-0400Respiratory rate18 /minPaadama Michelle Other [employer] Other 05-14-2023 11:50-7889EnN5% (BldA) [Mass fraction]98 % Mily Michelle Other [employer] Other 05-14-2023 11:50-0400Systolic blood uhtdswsq193 mm[Hg] Mily Valenzuelamond Other [employer] Other 02-16-2023 13:00-0500Body .32 cmSmackenzielloyd Perea Other [employer] Other 02-16-2023 13:00-0500Body mass index (BMI) [Ratio] 22.53 kg/n0Ctvyhtookmiguelito Perea Other [employer] Other 02-16-2023 13:00-0500Body dugzpbvgrfe60 [degF] Rashmi Perea Other [employer] Other 02-16-2023 13:00-0500Body xpinso22.9 kgStmiguelito Perea Other [employer] Other 02-16-2023 13:00-0500Diastolic blood zjxiemlu04 mm[Hg] Rashmi Perea Other [employer] Other 02-16-2023 13:00-7459AvJ6% (BldA) [Mass fraction]98 % Rashmi Perea Other [employer] Other 02-16-2023 13:00-0500Systolic blood meukpemv514 mm[Hg] Rashmi Perea Other [employer] Other 01-29-2023 11:30-0500Body lexsxc266.32 cmSmary Perea Other [employer] Other 01-29-2023 11:30-0500Body mass index (BMI) [Ratio] 24.03 kg/z4Jepoyqeialloyd Perea Other [employer] Other 01-29-2023 11:30-0500Body hwjbftsyoek52.9 [degF] Rashmilloyd Perea Other [employer] Other 01-29-2023 11:30-0500Body wncyxc84.16 kgStmarclloyd Perea Other [employer] Other 01-29-2023 11:30-0500Diastolic blood csynubkd38 mm[Hg] Rashmilloyd Perea Other [employer] Other 01-29-2023 11:30-0500Respiratory rate18 /minSmackenzielloyd Perea Other [employer] Other 01-29-2023 11:30-5200DbI7% (BldA) [Mass fraction]92 % Rashmilloyd Perea Other [employer] Other 01-29-2023 11:30-0500Systolic blood jobbycwo120 mm[Hg] Rashmilloyd Perea Other [employer] Other 01-10-2023 13:30-0500Body wezwod429.32 cmSteplloyd Perea Other [employer] Other 01-10-2023 13:30-0500Body mass index (BMI) [Ratio] 24.03 kg/h9Soxgwfiqslloyd Perea Other [employer] Other 01-10-2023 13:30-0500Body uunuhofoukr37.1 [degF] Rashmi Perea Other [employer] Other 01-10-2023 13:30-0500Body svochy97.16 kgRashmi Perea Other [employer] Other 01-10-2023 13:30-0500Respiratory rate18 /minSmary Perea Other [employer] Other 01-10-2023 13:30-3885MsY2% (BldA) [Mass fraction]98 % Rashmi Perea Other [employer] Other Encounters Encounter DateEncounter TypeCare ProviderFacilityStart: 11-12-2024 End: 18-22-2553kmrkmezjjaLcbp Naderer MD Work Phone: [facility] Work Phone: Start: 11-12-2024 End: 42-26-8528Jbzzsid encounter procedureEdward Oleary MD-[facility] Work Phone: Start: 34-56-5267Nkcfbkb encounter procedureGeneric ProviderNOIN HealthcareStart: 05-12-2024 End: 41-10-1011bcykfpmfwcVUHV NADERERNot AvailableStart: 04-06-2024 End: 52-86-9964Eptnsr outpatient visit 25 minutesCodeni MASSEY Work Phone: [facility] - Medical OncologyComment on above:Carcinoma in situ of vulva (Primary Dx); Encounter for screening mammogram for malignant neoplasm of breast; Constipation, unspecified constipation type; Counseling on health promotion and disease preventionStart: 04-06-2024 End: 94-10-8179dkolrcyxorJMITTKUMLupillo Flowersca Cibolo HospitalStart: 02-09-2024 End: 35-50-5876Ecjypy Garcia Oleary MD Work Phone: [facility] FMStart: 02-09-2024 End: 53-93-8324Sodhmt Garcia Oleary MD Work Phone: [facility] FMStart: 02-09-2024 End: 50-55-5505Anyyly outpatient visit 15 minutesEdward Oleary MD Work Phone: [facility] FMComment on above:Irritable bowel syndrome with constipation (Primary Dx); Encounter for long-term current use of medication; Constipation, unspecified constipation type; Generalized osteoarthritis of multiple sitesStart: 02-09-2024 End: 60-67-0320TyijuqEbjh Naderer MD Work Phone: [facility] CWM FMComment on above:ArthritisStart: 01-27-2024 End: 95-87-7776Pmwkqnyce Result EncounterGeneric External Data ProviderNOMS External Department UnsolicitedStart: 01-27-2024 End: 23-87-2297Kyvtbycuc Result EncounterGeneric External Data ProviderNOMS External Department UnsolicitedStart: 01-13-2024 End: 86-20-6979Mzhsok Regina Ogden MD Work Phone: noMS CI ENTStart: 01-13-2024 End: 33-08-6914Olchit Regina Ogedn MD Work Phone: [facility] CI ENTStart: 01-13-2024 End: 64-50-8833Lgvdar outpatient visit 15 minutesNess Ogden MD Work Phone: noMS CI ENTComment on above:Acute otalgia, right (Primary Dx); Other specified hearing loss of right ear, unspecified hearing status on contralateral side; Bilateral impacted cerumenStart: 01-13-2024 End: 13-77-1048Vnzkzw Aníbal MASSEY Work Phone: Shannandasia Nicholson [facility] - Medical OncologyComment on above:Abnormal mammogram of left breast (Primary Dx)Start: 01-09-2024 End: 83-87-9146Prtvwodpt Result EncounterGeneric External Data ProviderNOMS External Department UnsolicitedStart: 01-09-2024 End: 24-31-0431Xrjbieltq Result EncounterGeneric External Data ProviderNOMS External Department UnsolicitedStart: 10-22-2022 End: 43-14-2070mekbjomqbgFoeidf Dymond Other [employer] Other Start: 61-33-3418Prsnoy outpatient visit 15 minutes Mily DymondFPG Urgent Care ClydeStart: 07-07-2022 End: 81-56-4317khybdtcsyeAnejfw Michelle Other [employer] Other Start: 08-07-9470Wdjhqo outpatient visit 15 minutes Mily DymondFPG Urgent Care ClydeStart: 53-17-9237Hzubmu outpatient visit 15 minutesStephanie BreallieFPG Urgent Care ClydeStart: 04-11-2022 End: 44-35-7280afegomnvkbNsjsnncld [facility] Work Phone: Start: 04-11-2022 End: 89-09-8674Mmkyvztb ReferredFNP-C Rashmi Perea Work Phone: [facility] [place] Work Phone: Start: 03-24-2022 End: 18-56-6177sfvcmhurchKgohyvmvr Breault Other [employer] Other Start: 05-69-7662Uwundm outpatient visit 15 minutes Rashmi BonnerG Urgent Care ClydeStart: 03-05-2022 End: 26-23-2279yiqwnsckykVikanqgxy Breault Other [employer] Other Start: 39-34-5121Olzjdy outpatient new 20 minutes Rashmi Urias [facility] ClydeStart: 58-29-6877Aesrqkzil for general adult medical examination without abnormal findingsDR EDWARD A NADERERThe [facility] HospitalStart: 12-12-2021 End: 40-18-9861cgonyphfuwYT EDWARD A NADERERFacility:N5Ffhiw: 12-12-2021 End: 73-98-4444Etiujuagd for general adult medical examination without abnormal findingsDR EDWARD A NADERERFacility:B3Wmsvv: 11-23-2021 End: 69-02-8945pnvdrdgylxUY EDWARD A NADERERFacility:H1 Procedures DateProcedureProcedure DetailPerforming ClinicianStart: 20-32-4779Unzqfn-up visitFollow-upCOURTNEY PAYNEStart: 49-93-5562Ny breast uni real time with image completeGeneric External Data ProviderStart: 69-68-9169FR TOMOSYNTHESIS SCREENING BIGeneric External Data ProviderStart: 90-70-7429MgoqvfkvavtNobxot Timmis MD Work Phone: Plan of Treatment DateCare ActivityDetailAuthorStart: 63-14-8764Uncqwdbxp for malignant neoplasm of cervixNOMS HealthcareStart: 58-63-7601Ttjgv BMI ScreeningAdult BMI Screening [facility] SystemStart: 04-06-2025 End: 07-32-0766Rzahosf encounter peioikgwy44/11/2026 8:30 AM EST Office Visit Keira Gallego [facility] - Medical Oncology [address] [place] [address] Jackie Michael PA [address] [place] [address] Keira Gallego [facility] - Medical OncologyStart: 01-09-2025 End: 24-47-6695PAN Breast - bilateral screeningMammography screening bilateral with CAD Imaging Routine Encounter for screening mammogram for malignant neoplasm of breast Expected: 01/09/2025, Expires: 06/06/2025[facility] Work Phone: Comment on above:Expected: 01/09/2025, Expires: 06/06/2025Start: 40-74-4257Dbhcjtlcp for malignant neoplasm of breastMammogram [facility] HealthcareStart: 85-99-0650Hdjbqbwlc for malignant neoplasm of colonNOMS HealthcareStart: 73-10-6292Agcaxaxsr vaccinationInfluenza Vaccine (#1)[facility] HealthcareStart: 05-12-2024 End: 86-97-3289Stafrwy encounter telplxrtc28/19/2025 10:[address] AM EDT [address] [facility] [address] [place] [id number] Edward Oleary MD [address] [place] [address] [facility] FMStart: 03-16-2024 End: 61-82-7095Xnncatg encounter nsrrjdewg88/21/2025 9:00 AM EST Office Visit Keira [facility] - Medical Oncology [facility] [place] [address] Jackie Michael, [place] [address] [place] [address] [facility] - Medical OncologyStart: 94-52-8261Krtio BMI ScreeningAdult BMI ScreeningOhioHealth Grant Medical Center SystemStart: 02-09-2024 End: 62-68-0290Gxlqi metabolic 1998 panel - Serum or PlasmaBasic metabolic panel Lab Routine Encounter for long-term current use of medication Expected: 2023 (Approximate), Ex[facility]: [facility]2025[facility] Work Phone: Comment on above:Expected: 02/09/2024 (Approximate), Expires: 02/08/2025Start: 02-09-2024 End: 20-70-0912IEM W Auto Differential panel - BloodCBC and differential Lab Routine Encounter for long-term current use of medication Expected: 02/09/2024 (Approximate), Expires: 02/08/2025[facility] HealthcareComment on above:Expected: 02/09/2024 (Approximate), Expires: 02/08/2025Start: 02-09-2024 End: 18-44-3857Eayifzz function 2000 panel - Serum or PlasmaHepatic function panel Lab Routine Encounter for long-term current use of medication Expected: 02/09/2024 (Approximate), Expires: 02/08/2025NOIN HealthcareComment on above: Expected: 02/09/2024 (Approximate), Expires: 02/08/2025Start: 02-09-2024 End: 50-74-0138XJP W/REFLEX TO FT4TSH W/REFLEX TO FT4 Lab Routine Constipation, unspecified constipation type Expected: 02/09/2024 (Approximate), Expires: 02/08/2025NOIN HealthcareComment on above:Expected: 02/09/2024 (Approximate), Expires: 02/08/2025Start: 02-09-2024 End: 39-79-4455Vuyacvb encounter oaopnwhqg74/16/2024 10:45 AM EST Office Visit [facility] [address] [place] [phone] Edward Oleary MD [address] [place] [address] [facility] FMComment on above:ArrivedStart: 01-13-2024 End: 49-93-8207RM Breast - leftUltrasound breast complete left Imaging Routine Abnormal mammogram of left breast Expected: 01/13/2024, Expires: 01/12/2025 [facility] Work Phone: Comment on above:Expected: 01/13/2024, Expires: 01/12/2025Start: 01-13-2024 End: 72-91-5051Efqquss encounter wqasjaexo65/19/2024 9:10 AM EST Office Visit [facility] [address] [place] [address] Ness Ogden MD [address] [facility] [address] [place] [address] [facility] ENTComment on above:ArrivedStart: 14-68-9479CLBRX-19 Vaccine ( season)COVID-19 Vaccine ( season)[facility] SystemStart: 40-02-9591Xxpvtusvm vaccinationInfluenza VaccineOhioHealth Grant Medical Center SystemStart: 25-78-4370Btun Risk ScreeningFall Risk ScreeningProUniversity [facility]als [facility] SystemStart: 87-41-9179Nbmxhrfgtlgc Vaccine: 65+ Years (1 of 1 - PCV)Pneumococcal Vaccine: 65+ Years (1 of 1 - PCV)[facility] Start: 67-09-6128Laqkhbv ScreeningTobacco ScreeningProUniversity Hospitals Geneva [facility] SystemStart: 33-37-6404Hmyajevb identified in Urine by CultureCleveland Clinic Avon Hospitaltart: 68-92-3678Etijnlrgvadlev of varicella zoster vaccineZoster (Shingles) Vaccine (1 of 2)[facility] SystemStart: 24-54-9742Jujzsghcvhli Vaccine: 65+ Years (1 of 1 - PCV)Pneumococcal Vaccine: 65+ Years (1 of 1 - PCV) [facility] HealthcareStart: 15-82-0694Cwxhxojta for malignant neoplasm of cervixPap SmearNOMS HealthcareStart: 89-87-9805UAmU,Tdap and Td Vaccines (1 - Tdap) DTaP,Tdap and Td Vaccines (1 - Tdap)[facility] SystemStart: 1970 Depression ScreeningDepression ScreeningOhioHealth Grant Medical Center SystemStart: 1970 Tobacco ScreeningTobacco ScreeningOhioHealth Grant Medical Center SystemStart: 1958 Medicare Annual Wellness (AWV)Medicare Annual Wellness (AWV)[facility] Start: 82-40-1087Huryumohf for malignant neoplasm of colonNOMS Healthcare Immunizations Immunization DateImmunizationNotesCare TeqjdqblOqcllaeb10-18-6524afxrjeqce virus vaccine, unspecified formulationGeneric ProviderNOLee's Summit HospitalTpriwfmyus72-23-7194 influenza virus vaccine, unspecified formulationCourtney Michael PA Work Phone: [facility] Payers DatePayer CategoryPayerPolicy [id number] HMOAET MEDICARE [id number] 2024MedicaidAETNA MEDICARE ADVANTAGE [id number] [id number] 2024MedicareMEDICARE [id number] Care HMO (unspecified)[facility] [place] [id number] 65-95-3427Qngp-[id number] [employer] MEDICAID Member Subscriber Plan / Payer (Effective 2022-Present) Name: Rocio Stanford Relation to Subscriber: Self Name: Rocio Stanford Payer ID: [id number] (NAIC) Group ID: [id number] Type: Not on file Address: [address] [place] [id number] [id number] [id number]. [id number] ..[id number] .[id number] 2..1.203419.3.57[id number] 2..1.909535.3.57[id number] 2.1.646[id number] 2.1.082931.Private Health InsuranceCigeorge regional hospital Health [id number] .[id number] .1.963675.3.579.2.531 Social History DateTypeDetailFacilityTobacco smoking status NHISUnknown if ever smokedUniversity Hospitals Beachwood [facility] Center Work Phone: Start: 43-57-4045Dtx Assigned At [facility] Centertart: 01-13-2024 End: 95-10-1178Hfo Assigned At [facility] CareNOIN HealthcareTobacco smoking status NHIS Tobacco smoking consumption unknownNOMS HealthcareStart: 85-20-5865Mcb assigned at birthNot on fileNOMS HealthcareStart: 01-13-2024 End: 03-60-4576Ccdddwf smoking status NHISNever smoked tobaccoNOMS Healthcare Start: 90-81-7926Hschhci use and exposureSmokeless tobacco non-userNOMS HealthcareStart: 01-13-2024 End: 03-95-4770Dhcxsxqnu beverage intakeCurrent drinker of alcohol (finding)[facility]S HealthcareStart: 01-13-2024 End: 06-07-5619Ljvkjak of Social functionNOMS HealthcareStart: 14-51-2956Ajzxkvs smoking status NHISEx-smokerProMedica Health SystemHistory of tobacco useCurrent smokerProMedica Health SystemHistory of tobacco useCigarette SmokerProSumma Health Wadsworth - Rittman Medical Centerca Health SystemStart: 75-86-4131Ipnpwqp use and exposureFormer smokeless tobacco userProMedica Health SystemStart: 71-53-8592Zqocwytyl beverage intakeCurrent non-drinker of alcohol (finding)[facility] SystemStart: 05-08-2022 ChildcareUnknowLakeHealth [facility] Medical [facility] SystemStart: 01-73-1183Frxtylu Commentsmokes occassionalCleveland Clinic Lutheran Hospital SystemStart: 40-26-9063PgzNljggc (finding) [facility] SystemHow often do you need to have someone help you when you read instructions, pamphlets, or other written material from your doctor or pharmacy [SILS]NeverNOMS HealthcareAre you now , , , , never or living with a partner?WidowedNOIN HealthcareDo you feel stress - tense, restless, nervous, or anxious, or unable to sleep at night because yourmind is troubled all the time - these days [OSQ]Not at allNOIN Healthcare(I/We) worried whether (my/our) food would run out before (I/we) got money to buy more.Never trueNOMS HealthcareAt any time in the past 12 months, were you homeless or living in mcfp [including now]?NoNOMS Healthcare Functional Status SqkiLksewbsogxWzaepkJyxaixlk31-33-0505Cqsyhpd Health Questionnaire 2 item (PHQ- 2) [Reported][facility] Cdjqmmnjxm37-69-9341Knihi score [AUDIT-C]-1 05/11/2024 11:21 AM EDT [facility], GenericSaint Joseph Hospital WestJpxsgyyegp09-74-7854Cmdfmnclby statusPatient declined 05/11/2024 11:21 AM EDT [facility], Generic Patient declinedAlleghany Health Clinical Notes 03-05-2022 to 04-06-2024 Note Date & NuqwDyncGffotcti42-00-5884 History of Present illness Narrative* BRYSON Puckett - 04/06/2024 8:30 AM EST Subjective: Rocio is a 63 y.o. female here for history of PITER III. She is doing well. She reports chronic constipation. She was recently put back on Linzess which she states is very helpful. She lost her husbandrecently and states this has been stressful, may be contributing to her bowels. She denies vaginal bleeding, vaginal discharge, vulvar itching/burning/pain, change in bladder habits, SOB, cough, nausea, and vomiting. 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 Past Gynecologic History: OB History No obstetric history on file. No LMP recorded. Patient is postmenopausal. Hormonal Contraceptives No HRT use No History of abnormal pap No Past Surgical History: Procedure Laterality Date CHOLECYSTECTOMY 2007 CO2 LASER ABLATION VULVA N/A 07/18/2016 Performed by Daniel Cuello MD at [facility] SURGERY COLPOSCOPY VULVA AND ANUS WITH LASER VAPORIZATION OF VULVA AND ANUS N/A 12/31/2018 Performed by Daniel Cuello MD at [facility] SURGERY TONSILLECTOMY Left 2015 benign WISDOM TOOTH EXTRACTION Past Medical History: Diagnosis Date Arthritis osteo Basal cell carcinoma of head 2017 Dental disease upper denture Skin cancer 2017 Visual impairment near sighted, contacts/glasses Vulvar cancer ([facility]) years ago Family History Problem Relation Age of Onset Breast cancer Neg Hx Lung cancer Neg Hx Ovarian cancer Neg Hx Cervical cancer Neg Hx Anesthesia problems Neg Hx Social History Tobacco Use Smoking status: Former Types: Cigarettes Smokeless tobacco: Former Tobacco comments: smokes occassionally Substance Use Topics Alcohol use: No Review of Symptoms: Pertinent items are noted in HPI. Objective: BP 133/79 Pulse 70 Temp 36.7 C (98.1 F) (Oral) Resp 16 Wt 48.9 kg (107 lb 12.8 oz) SpO2 98% BMI 22.54 kg/m ECO- Asymptomatic General appearance: alert, appears stated age and cooperative Head: Normocephalic, without obvious abnormality, atraumatic Lungs: clear to auscultation bilaterally Heart: regular rate and rhythm, S1, S2 normal, no murmur, click, rub or gallop Abdomen: soft, nontender, no masses or organomegaly Pelvic: cervix normal in appearance . external genitalia normal - no lesions or masses, no acetowhite changes, uterus normal size, shape, and consistency, vagina normal without discharge and no lesions/masses, mild atrophy Extremities: extremities normal, atraumatic, no cyanosis or edema Pulses: 2+ and symmetric Skin: Skin color, texture, turgor normal. No rashes or lesions Lymph nodes: Cervical, supraclavicular, and axillary nodes normal. Neurologic: Grossly normal Labs: Lab Results Component Value Date WBC 7.8 12/28/2018 HGB 13.9 12/28/2018 HCT 41.9 12/28/2018 MCH 31.9 12/28/2018 MCHC 33.3 12/28/2018 PLT 266 12/28/2018 MPV 9.3 12/28/2018 RDW 13.2 12/28/2018 Lab Results Component Value Date BUN 15 12/28/2018 K 4.2 12/28/2018 CL 105 12/28/2018 ALBUMIN 4.5 12/28/2018 AST 23 12/28/2018 No results found for: GGT No results found for: LDH No results found for: MG No results found for: PHOS No results found for: URIC Assessment: Patient is diagnosed with Patient Active Problem List Diagnosis Carcinoma in situ of vulva Plan: 1. PITER III - No evidence of dyplasia on exam today. Pap smears have been normal in the past. Dysplasia picked up on clinical exam and biopsies. 2. Counseling on Health Promotion & Disease Prevention: Counseled patient on the importance of routine screenings, disease management, healthy diet and regular exercise. Mammogram order provided.Reviewed latest mammogram and U/S results with her today. Pap up to date - due in 2025. 3. Constipation - currentl in Linzess with success, discussed pelvic tension (may consider PFPT), stress management, dietary strategies *The patient has a documented plan of care to address pain. All questions were answered to the patient's satisfaction. She is agreeable to this plan of care. .Total time spent was 28 minutes: Preparing to see the patient (e.g., review of tests) Performing a medically appropriate examination and/or evaluation Counseling and educating the patient/family/caregiver Ordering medications, tests, or procedures Documenting clinical information in the electronic or other health record Care coordination (not separately reported) Jackie Michael PA-C, RD, IF BRYSON Puckett 04/06/24 0857 documented in this encounterMercy Health [facility]12-16-[facility] History of Present illness Narrative* Edward Oleary MD - 02/09/2024 11:29 AM ESTAssociated Problem(s): Irritable bowel syndrome with constipation Worsening symptoms and resume linzess. Continue high fiber diet. * Edward Oleary MD - 02/09/2024 11:29 AM ESTAssociated Problem(s): Generalized osteoarthritis of multiple sites Pain stable and use celebrex PRN. * Edward Oleary MD - 02/09/2024 10:45 AM EST Images from the original note were not included. Subjective Patient ID: Rocio Stanford is a 63 y.o. female who presents for Follow-up (Bloating and constipation. clm). C/o constipation and bloating for years but worse over past few months. BM once every 3-5 days. Abdomen becomes distended and painful. Frequent cramping. Tries to eat high fiber diet. Tried OTC miralax and no change. In past on linzess and worked well then insurance did not cover. Now has new insurance and wants to try again. OA stable with celebrex. Occasional pain but tolerable. Review of Systems Respiratory: Negative for cough, shortness of breath and wheezing. Cardiovascular: Negative for chest pain and palpitations. Gastrointestinal: Negative for abdominal pain, diarrhea, nausea and vomiting. Genitourinary: Negative for dysuria. Objective Physical Exam Constitutional: General: She is not in acute distress. Appearance: Normal appearance. HENT: Head: Normocephalic. Right Ear: Tympanic membrane normal. Left Ear: Tympanic membrane normal. Eyes: Extraocular Movements: Extraocular movements intact. Pupils: Pupils are equal, round, and reactive to light. Cardiovascular: Rate and Rhythm: Normal rate and regular rhythm. Heart sounds: No murmur heard. No friction rub. No gallop. Pulmonary: Effort: Pulmonary effort is normal. Breath sounds: Normal breath sounds. No wheezing, rhonchi or rales. Abdominal: General: Bowel sounds are normal. There is no distension. Palpations: Abdomen is soft. Tenderness: There is no abdominal tenderness. There is no guarding or rebound. Musculoskeletal: Cervical back: Neck supple. Right lower leg: No edema. Left lower leg: No edema. Neurological: Mental Status: She is alert. Assessment/Plan Problem List Items Addressed This Visit Irritable bowel syndrome with constipation - Primary Worsening symptoms and resume linzess. Continue high fiber diet. Relevant Medications linaCLOtide (Linzess) 290 MCG capsule Constipated Relevant Orders TSH W/REFLEX TO FT4 Encounter for long-term current use of medication Relevant Orders Basic metabolic panel CBC and differential Hepatic function panel Generalized osteoarthritis of multiple sites Pain stable and use celebrex PRN. documented in this encounterSaint Joseph Hospital WestUcgbmlhifs64-20-8059 History of Present illness Narrative* Ness Ogden MD - 01/13/2024 9:10 AM EST Images from the original note were not included. Subjective Patient ID: Rocio Stanford is a 63 y.o. female who presents for Ear Problem (Ear pain and plugged ) Pt reports a couple week h/o RT ear pain. Some HL per pt. No otorrhea. H/O cerumen impaction in thepast Family History Problem Relation Name Age of [...] debrided. F/U if recur documented in this encounterSaint Joseph Hospital WestSsdoilpsea27-25-4686 Evaluation note* Encounter Date Diagnosis Assessment Notes Treatment Notes Treatment Clinical Notes Sep, Acute sinusitis, rec urrence not specified, unspecified location (ICD-10 - J01.90) Sinusitis home care material was printed Drink plenty fluids, get plenty of rest. Take the cephalexin and prednisone as prescribed until gone. Use the fluticasone nasal spray as prescribed and your symptoms improved. You may continue to take your daily antihistamine medication. Follow-up with your family physician if no improvement in 2 to 3 days [facility] Other 05-14-2023 Evaluation note* Encounter Date Diagnosis Assessment Notes Treatment Notes Treatment Clinical Notes June, Bilateral impacted cerumen (ICD- 10 - H61.23) Cerumen impaction home care material was printed Drink plenty fluids, get plenty of rest. Use eardrops as prescribed. Take Tylenol or Motrin as needed for aches pains or fevers. Follow-up with family physician if no improvement in 2 to 3 days June,cute otitis externa of left ear, unspecified type (ICD-10 - H60.502)Otitis externa home care material was printed [facility] Other 02-16-2023 Evaluation note* Encounter Date Diagnosis Assessment Notes Treatment Notes Treatment Clinical Notes Mar, Dysuria (ICD-10 - R30.0) Mar,cute cystitis with hematuria (ICD-10 - N30.01)Take medication as directed. Urine analysis shows abnormalities today in office. Urine culture will be sent to lab. Will call with results if warranted. Increase fluid intake. Follow hygiene guidelines such as wiping front to back, avoid using perfumed lotions, bath beads, bubble bath. Recommend follow up with primary care provider after treatment completed to make sure infection has cleared. [facility] Other 01-29-2023 Evaluation note* Encounter Date Diagnosis Assessment Notes Treatment Notes Treatment Clinical Notes Feb, Sore throat (ICD-10 - J02.9) Feb,Walking pneumonia (ICD-10 - J18.9)Take medications as directed. Rest and increase fluid [...] weeks for the cough to go away [facility] Other 01-10-2023 Evaluation note* Encounter Date Diagnosis [...] weeks for the cough to go away [facility] Other Evaluation noteNo assessment information available [facility] Work Phone: Evaluation note* Diagnosis Acute otalgia, right- Primary Other specified hearing loss of right ear, unspecified hearing status on contralateral side Bilateral impacted cerumen Impacted cerumen documented in this encounter [facility] HealthcareEvaluation note* Diagnosis Arthritis Unspecified arthropathy, site unspecified documented in this encounter [facility] HealthcareEvaluation note* Diagnosis Irritable bowel syndrome with constipation- Primary Irritable bowel syndrome Encounter for long-term current use of medication Constipation, unspecified constipation type Generalized osteoarthritis of multiple sites Generalized osteoarthrosis, involving multiple sites documented in this encounter [facility] HealthcareEvaluation note* Diagnosis Carcinoma in situ of vulva- Primary Carcinoma in situ, vulva Encounter for screening mammogram for malignant neoplasm of breast Constipation, unspecified constipation type Counseling on health promotion and disease prevention Other specified counseling documented in this encounter [facility] SystemEvaluation note* Diagnosis Abnormal mammogram of left breast- Primary documented in this encounter [facility] SystemHistory general Narrative - Reported* Type Description Date Medical History Osteoarthritis Surgical HistorycholecystectomySurgical HistorytonsillectomySurgical History wisdom teethHospitalization Historysee above [facility] Other InstructionsNot on filedocumented in this encounter [facility] Opiatalk SystemInstructionsNot on filedocumented in this encounter [facility] SystemReason for referral (narrative)No reason for referral information availableKettering Health [facility] Township Work Phone: Summary Purpose Family History Relationship Condition Age at Onset Recorded Date/T stefani brother Unknown fatherDeceasedUnknownmotherDeceasedUnknown Advance Directives Advance Directive Response Recorded Date/ Time Advance Directives No March 2:47pm Chief Complaint and Reason for Visit Chief Complaint Dysuria Chief Complaint Admit Date Established Patient November 12, 2024 8:52am Additional Source Comments INFORMATION SOURCE (unrecogn ized section and content) DATE CREATED AUTHOR 01/23/2022 [facility] DATE CREATED AUTHOR AUTHOR'S ORGANIZ ATION 04/23/2022 [facility] DATE CREATED AUTHOR AUTHOR'S ORGANIZ ATION 04/07/2024 [facility] DATE CREATED AUTHOR AUTHOR'S ORGANIZ ATION 05/14/2024 [facility] EPIC Care Teams (unrecognized sec tion and content) Team Status: Inactive Member Role Status Dates HOLDEN Gray Attending Provider Active Team MemberRelationshipSpecialtyStart DateEnd Date Edward Oleary MD [address] [place] [address] PCP - [employer]05/26/23Team MemberRelationshipSpecialtyStart DateEnd Date Edward Oleary MD [address] [place] [address] PCP - [employer]05/26/23Team MemberRelationshipSpecialtyStart DateEnd Date Edward Oleary MD [address] [place] [address] PCP - [employer]05/26/23 Edward Oleary MD [address] [place] [address] [facility] Tjjmwbbe83/16/24Team MemberRelationshipSpecialtyStart Date End Date Edward Oleary MD [address] [place] [address] PCP - [employer]05/26/23 Edward Oleary MD [address] [place] [address] PCP - [facility]02/09/24Team MemberRelationshipSpecialtyStart Date End Date Edward Oleary MD [address] [place] [address] PCP - Ae05/26/23 Edward Oleary MD [address] [place] [address] PCP - [facility]02/09/24Team MemberRelationshipSpecialtyStart Date End Date Edward Oleary MD PCP [facility]07/09/16Team MemberRelationshipSpecialtyStart DateEnd Date Edward Oleary MD [facility]07/09/16 Team Status: Active Member Role Status Dates Edward Oleary MD Primary Care Provider Active Team Status: Inactive Member Role Status Dates Edward Oleary MD Primary Care Provider Active S tart: November 12, 2024 End: November 12, 2024[facility] AMADOU Olearyttending ProviderActiveStart: November 12, 2024 End: November 12, 2024Team MemberRelationshipSpecialtyStart DateEnd Date Edward Oleary MD [address] [place] [address] PCP - [employer]et05/26/2411 Edward Oleary MD [address] [place] [address] PCP - GeneralFamily Fvyyzhtk17/16/24Team MemberRelationshipSpecialtyStart Date End Date Edward Oleary MD [address] [place] [address] PCP - [employer]05/26/2411 Edward Oleary MD [address] [place] [address] PCP - GeneralFamily Ufebbocd77/16/24 Goals (unrecognized section and content) Goals may be documented in a n alternate sectionNo InformationNo InformationNo InformationNo InformationNo InformationNot on filedocumented as of this encounterNot on filedocumented as of this encounterGoals may be documented in an alternate section REASON FOR VISIT (unrecogniz ed section and content) ReasonCommentsEar ProblemEar pain and pluggedReasonOnset DateCommentsMed Refill 4ReasonCommentsFollow-upBloating and constipation. clmReasonComments Follow-up FOR RECORDS PERTAINING TO PATIENTS WHO ARE [...] BE BASED ON THE PRIMARY CLINICAL RECORDS. [employer] [facility]. provides no warranty or guarantee of the accuracy or completeness of information in this document.
== END 2025-01-26 10:00 | disposition home or self-care (01) ==
LOC: MAMMO 09:59
PROVIDERS: PCP Family Medicine
DX: Z12.31 Encounter for screening mammogram for malignant neoplasm of breast (principal)
CPT/HCPCS: 77063; 77067